=== PATIENT | female | born 1955 | race Two or more races ===

== ENCOUNTER 2016-12-07 14:47 | Inpatient (IN) | payer MEDICAID ==
[~2016-12-07] VITALS: Ht 152.4 cm; Wt 87.0 kg
[~2016-12-07 14:47] MED LIST: GEMFPOW3 XX; HYDRPOW88 XX; LISI-646 PO; OMEP20CA5 PO; PROZAC PO; SIMV10TA84 PO
[2016-12-07] MEDS ORDERED: HYDROmorphone HCL 2 MG/ML VL IV ONE (16:15)
[2016-12-07] MEDS ORDERED: KETOROLAC TROMETH 30 MG/ML 1ML VIAL IV ONE (16:15)
[2016-12-07 17:30] LABS: Basophils # (auto) 0.1 uL; Basophils % (auto) 0.6 % (0.0-2.0); Eosinophils # (auto) 0.4 uL; Eosinophils % (auto) 3.4 % (0.0-7.0); Hematocrit 38.2 % (36.0-46.0); Hemoglobin 12.8 g/dL (12.2-16.2); Lymphocytes % (auto) 26.3 % (10.0-50.0); Mean Corpuscular Hemoglobin 27.2 pg (28.0-32.0); Mean Corpuscular Hgb Conc. 33.6 g/dL (32.0-36.0); Mean Corpuscular Volume 80.9 fL (80.0-100.0); Mean Platelet Volume 7.5 fL (7.4-10.4); Monocytes # (auto) 0.8 uL; Monocytes % (auto) 6.7 % (0.0-12.0); Neutrophils # (auto) 7.1 uL; Platelet Count (auto) 355 10^3/uL (140-450); Red Cell Distribution Width 16.2 % (11.6-16.0); White Blood Cell 11.2 10^3/uL (4.4-10.8)
[2016-12-07 17:45] LABS: BUN/Creatinine Ratio 11.5; Bilirubin, Total 0.3 mg/dL (0.2-1.0); Calcium 8.5 mg/dL (8.5-10.1); Potassium 4.6 mmol/L (3.5-5.1); Total Protein 8.1 g/dL (6.4-8.2)
[2016-12-07] MEDS ORDERED: CLINDAMYCIN 900MG IV 50 ML IV ONE (18:15)
[2016-12-07] MEDS ORDERED: ACETAMINOPHEN 325 MG TAB PO PRN (19:15)
[2016-12-07] MEDS ORDERED: DOCUSATE SOD 100 MG CAP PO PRN (19:15)
[2016-12-07] MEDS ORDERED: ONDANSETRON HCL 4 MG/2 ML VIAL IV PRN (19:15)
[2016-12-07] MEDS ORDERED: ALBUTEROL SULF 2.5 MG/0.5ML(0.5%) NEB SOLN NEB PRN (19:15)
[2016-12-07] MEDS ORDERED: IPRATROPIUM BROM 0.5 MG/2.5ML INH SOL NEB PRN (19:15)
[2016-12-07] MEDS ORDERED: TEMAZEPAM 15 MG CAP PO PRN (19:15)
[2016-12-07] MEDS ORDERED: VANCOMYCIN PER PHARMACY 0 MG IV SCH (19:15)
[2016-12-07] MEDS ORDERED: SOD CHL 0.45% 1,000 ML IV ONE (19:15)
[2016-12-07 19:55] VITALS: BP 166/87
[2016-12-07] MEDS: VANCOMYCIN 1GM/250ML D5W 250 ML IV SCH (20:50)
[2016-12-07 21:50] VITALS: BP 166/87
[2016-12-07 22:00] VITALS: BP 166/87
[2016-12-07] MEDS: PIPERACILLIN-TAZOB 3.375GM 100 ML IV SCH (22:00)
[2016-12-07 22:30] VITALS: BP 133/70
[2016-12-07] MEDS: LISINOPRIL 20 MG TAB PO SCH (22:48)
[2016-12-07] MEDS: ATORVASTATIN 20 MG TAB PO SCH (22:48)
[2016-12-08 00:33] LABS: Urine RBC None Seen /hpf (0 - 4)
[2016-12-08 00:45] LABS: Urine Bilirubin Negative (Negative); Urine Blood Negative /uL (Negative); Urine Color Yellow (Yellow); Urine Glucose Normal (Normal); Urine Ketone Negative (Negative); Urine Mucus FEW (None Seen); Urine Nitrite Negative (Negative); Urine Urobilinogen Normal (Negative)
[2016-12-08 05:09] VITALS: BP 134/88
[2016-12-08] MEDS: PIPERACILLIN-TAZOB 3.375GM 100 ML IV SCH ×3 (05:46→22:12)
[2016-12-08] MEDS: KETOROLAC TROMETH 30 MG/ML 1ML VIAL IV PRN ×2 (06:00→12:47)
[2016-12-08 07:23] LABS: Basophils # (auto) 0 uL; Basophils % (auto) 0.5 % (0.0-2.0); DEFINITIVE VIEW TRANSMISSION; Eosinophils # (auto) 0.4 uL; Eosinophils % (auto) 4.8 % (0.0-7.0); Hematocrit 39.4 % (36.0-46.0); Lymphocytes # (auto) 2.8 uL; Lymphocytes % (auto) 30.5 % (10.0-50.0); Mean Corpuscular Hemoglobin 26.6 pg (28.0-32.0); Mean Corpuscular Volume 80.5 fL (80.0-100.0); Mean Platelet Volume 7.3 fL (7.4-10.4); Monocytes # (auto) 0.6 uL; Monocytes % (auto) 6.7 % (0.0-12.0); Neutrophils # (auto) 5.2 uL; Neutrophils % (auto) 57.5 % (37.0-80.0); Platelet Count (auto) 400 10^3/uL (140-450); Red Cell Distribution Width 16.3 % (11.6-16.0); White Blood Cell 9.1 10^3/uL (4.4-10.8)
[2016-12-08 07:51] LABS: Albumin 2.9 g/dL (3.4-5.0); BUN/Creatinine Ratio 10.7; Bilirubin, Total 0.3 mg/dL (0.2-1.0); Calcium 8.7 mg/dL (8.5-10.1); Magnesium 2.2 mg/dL (1.6-2.6); Potassium 4.1 mmol/L (3.5-5.1)
[2016-12-08 08:00] VITALS: BP 142/86
[2016-12-08 09:00] VITALS: BP 142/86
[2016-12-08] MEDS ORDERED: IOHEXOL 350 MG/ML 100ML IJ ONE (09:12)
[2016-12-08] MEDS ORDERED: ENOXAPARIN SOD 40 MG/0.4 ML SYRINGE SC ONE (11:00)
[2016-12-08] MEDS: FLUoxetine HCL 20 MG CAP PO SCH (11:34)
[2016-12-08] MEDS: VANCOMYCIN 1GM/250ML D5W 250 ML IV SCH ×2 (11:34→19:51)
[2016-12-08] MEDS: NICOTINE 21MG/24 HR TOPICAL PATCH TD SCH (11:34)
[2016-12-08] MEDS: LISINOPRIL 20 MG TAB PO SCH ×2 (11:35→22:13)
[2016-12-08 13:00] VITALS: BP 118/74
[2016-12-08 17:01] VITALS: BP 164/84
[2016-12-08 22:00] VITALS: BP 136/89
[2016-12-08] MEDS: ATORVASTATIN 20 MG TAB PO SCH (22:12)
[2016-12-09 05:41] VITALS: BP 150/81
[2016-12-09] MEDS: PIPERACILLIN-TAZOB 3.375GM 100 ML IV SCH ×3 (05:44→22:15)
[2016-12-09 05:51] LABS: Basophils # (auto) 0 uL; Basophils % (auto) 0.3 % (0.0-2.0); DEFINITIVE VIEW TRANSMISSION; Eosinophils # (auto) 0.4 uL; Eosinophils % (auto) 4.1 % (0.0-7.0); Hematocrit 42.3 % (36.0-46.0); Hemoglobin 13.8 g/dL (12.2-16.2); Lymphocytes # (auto) 2.4 uL; Lymphocytes % (auto) 26.5 % (10.0-50.0); Mean Corpuscular Hemoglobin 26.4 pg (28.0-32.0); Mean Corpuscular Hgb Conc. 32.5 g/dL (32.0-36.0); Mean Corpuscular Volume 81.2 fL (80.0-100.0); Mean Platelet Volume 7.2 fL (7.4-10.4); Monocytes # (auto) 0.7 uL; Monocytes % (auto) 8.1 % (0.0-12.0); Neutrophils # (auto) 5.6 uL; Platelet Count (auto) 392 10^3/uL (140-450); Red Cell Distribution Width 16.2 % (11.6-16.0); White Blood Cell 9.3 10^3/uL (4.4-10.8)
[2016-12-09 06:10] LABS: Albumin 2.8 g/dL (3.4-5.0); BUN/Creatinine Ratio 14.6; Calcium 8.1 mg/dL (8.5-10.1); Potassium 4.1 mmol/L (3.5-5.1)
[2016-12-09 06:16] LABS: Bilirubin, Total 0.6 mg/dL (0.2-1.0); Total Protein 7.9 g/dL (6.4-8.2)
[2016-12-09] MEDS: VANCOMYCIN 1GM/250ML D5W 250 ML IV SCH (08:00)
[2016-12-09 09:00] VITALS: BP 136/64
[2016-12-09] MEDS: ENOXAPARIN SOD 40 MG/0.4 ML SYRINGE SC SCH (09:09)
[2016-12-09] MEDS: LISINOPRIL 20 MG TAB PO SCH ×2 (09:10→20:55)
[2016-12-09] MEDS: FLUoxetine HCL 20 MG CAP PO SCH (09:10)
[2016-12-09] MEDS: NICOTINE 21MG/24 HR TOPICAL PATCH TD SCH (09:11)
[2016-12-09] MEDS: KETOROLAC TROMETH 30 MG/ML 1ML VIAL IV PRN ×2 (10:48→20:55)
[2016-12-09 13:00] VITALS: BP 147/78
[2016-12-09 17:32] VITALS: BP 135/72
[2016-12-09] MEDS ORDERED: METH10T PO (20:53)
[2016-12-09] MEDS: ATORVASTATIN 20 MG TAB PO SCH (20:54)
[2016-12-09] MEDS ORDERED: METHADONE HCL 10 MG TAB PO ONE (22:15)
[2016-12-09 22:24] VITALS: BP 142/85
[2016-12-10 04:47] VITALS: BP 136/93
[2016-12-10] MEDS: PIPERACILLIN-TAZOB 3.375GM 100 ML IV SCH (06:11)
[2016-12-10 07:59] VITALS: BP 150/80
[2016-12-10] MEDS: ENOXAPARIN SOD 40 MG/0.4 ML SYRINGE SC SCH (09:25)
[2016-12-10] MEDS: FLUoxetine HCL 20 MG CAP PO SCH (09:26)
[2016-12-10] MEDS: NICOTINE 21MG/24 HR TOPICAL PATCH TD SCH (09:26)
[2016-12-10] MEDS: LISINOPRIL 20 MG TAB PO SCH (09:27)
[2016-12-10] MEDS ORDERED: VANCOMYCIN 750 MG in D5W 5% 250 ML IV SCH (11:00)
[2016-12-10 11:25] VITALS: BP 138/95
[2016-12-10 11:29] VITALS: BP 151/80
[2016-12-10 11:55] VITALS: BP 151/80
== END 2016-12-10 12:15 | disposition home or self-care (01) | DRG 383 ==
LOC: ER 14:52 → OVERFLOW 14:53 → EAST 21:58
PROVIDERS: ADMIT Internal Medicine; ATTEND Internal Medicine
DX: L03.115 Cellulitis of right lower limb (principal); E44.0 Moderate protein-calorie malnutrition; I10 Essential (primary) hypertension; E03.9 Hypothyroidism, unspecified; E05.90 Thyrotoxicosis, unspecified without thyrotoxic crisis or storm; E78.5 Hyperlipidemia, unspecified; F17.210 Nicotine dependence, cigarettes, uncomplicated; F32.9 Major depressive disorder, single episode, unspecified; G89.29 Other chronic pain; M19.90 Unspecified osteoarthritis, unspecified site; J44.9 Chronic obstructive pulmonary disease, unspecified; K21.9 Gastro-esophageal reflux disease without esophagitis; Z83.3 Family history of diabetes mellitus; Z86.61 Personal history of infections of the central nervous system; Z86.73 Personal history of transient ischemic attack (TIA), and cerebral infarction without residual deficits; Z88.5 Allergy status to narcotic agent; Z82.49 Family history of ischemic heart disease and other diseases of the circulatory system; Z80.9 Family history of malignant neoplasm, unspecified; Z98.890 Other specified postprocedural states; Z90.710 Acquired absence of both cervix and uterus; Z86.19 Personal history of other infectious and parasitic diseases; Z68.37 Body mass index [BMI] 37.0-37.9, adult
CPT/HCPCS: 36415; 71010; 78582; 80053; 80061; 80202; 81001; 83735; 84100; 84443; 85025; 85379; 85652; 93971; 94761; 96365; 96366; 96375; J1885; J2405; J2543; J3490; J7060

== ENCOUNTER 2017-01-26 19:29 | Emergency (ER) | payer MEDICAID ==
[~2017-01-26] VITALS: Ht 157.5 cm; Wt 83.5 kg
[~2017-01-26 19:29] MED LIST changes: +METH10T PO
[2017-01-26] MEDS ORDERED: ALBUTEROL SULF 2.5 MG/0.5ML(0.5%) NEB SOLN HHN STA (19:53)
[2017-01-26 19:55] VITALS: BP 152/100
[2017-01-26] MEDS ORDERED: IPRATROPIUM BROM 0.5 MG/2.5ML INH SOL NEB ONE (20:00)
[2017-01-26 20:32] LABS: Urine Bilirubin Negative (Negative); Urine Blood Negative /uL (Negative); Urine Color Yellow (Yellow); Urine Glucose Normal (Normal); Urine Ketone Negative (Negative); Urine Mucus FEW (None Seen); Urine Nitrite Negative (Negative); Urine RBC 2 /hpf (0 - 4); Urine Squamous Epithelial Cell FEW /hpf (<5)
[2017-01-26 20:38] LABS: Basophils # (auto) 0 uL; Basophils % (auto) 0.2 % (0.0-2.0); DEFINITIVE VIEW TRANSMISSION; Eosinophils # (auto) 0.5 uL; Eosinophils % (auto) 5.3 % (0.0-7.0); Hematocrit 36.1 % (36.0-46.0); Hemoglobin 11.6 g/dL (12.2-16.2); Lymphocytes # (auto) 2.8 uL; Lymphocytes % (auto) 27.9 % (10.0-50.0); Mean Corpuscular Hemoglobin 26.3 pg (28.0-32.0); Mean Corpuscular Hgb Conc. 32.3 g/dL (32.0-36.0); Mean Corpuscular Volume 81.6 fL (80.0-100.0); Mean Platelet Volume 7.6 fL (7.4-10.4); Monocytes # (auto) 0.9 uL; Monocytes % (auto) 8.8 % (0.0-12.0); Neutrophils # (auto) 5.9 uL; Neutrophils % (auto) 57.8 % (37.0-80.0); Platelet Count (auto) 343 10^3/uL (140-450); Red Cell Distribution Width 16.2 % (11.6-16.0); White Blood Cell 10.2 10^3/uL (4.4-10.8)
[2017-01-26 20:41] LABS: Albumin 3.4 g/dL (3.4-5.0); Anion Gap 9 (5-15); Aspartate Aminotransferase 55 U/L (15-37); BUN/Creatinine Ratio 13.3; Blood Urea Nitrogen 14 mg/dL (7-18); Calcium 8.4 mg/dL (8.5-10.1); Carbon Dioxide 26 mmol/L (21-32); Chloride 103 mmol/L (98-107); GFR African American 68 mL/min; GFR Non-African American 56 mL/min; Glucose 113 mg/dL (74-106); Magnesium 2.1 mg/dL (1.6-2.6); Potassium 3.5 mmol/L (3.5-5.1); Sodium 138 mmol/L (136-145)
[2017-01-26 20:46] LABS: Alkaline Phosphatase 124 U/L (45-117); Bilirubin, Total 0.5 mg/dL (0.2-1.0); Total Protein 8.4 g/dL (6.4-8.2)
[2017-01-26 21:06] LABS: B-Type Natriuretic Peptide 42.22 pg/mL (0-100)
[2017-01-26 21:08] LABS: INR 0.99 (0.9-1.15); Partial Thromboplastin Time 27.5 sec (22.64-33.71); Prothrombin Time 10.7 sec (9.37-12.3)
[2017-01-26 21:18] LABS: Temperature: 23.4 C (20.0-25.0)
== END 2017-01-27 00:02 | disposition left against medical advice (07) ==
LOC: ER 19:33
DX: R06.02 Shortness of breath (principal); Z53.21 Procedure and treatment not carried out due to patient leaving prior to being seen by health care provider
CPT/HCPCS: 36415; 71010; 80053; 81001; 83735; 83880; 84484; 85025; 85610; 85730; 93005; 94640

== ENCOUNTER 2018-06-24 00:25 | Inpatient (IN) | payer MEDICAID ==
[2018-06-23 22:00] VITALS: BP 98/60
[~2018-06-24] VITALS: Ht 157.5 cm; Wt 70.6 kg
[~2018-06-24 00:25] MED LIST changes: +FLUO-125 PO; +GABA300C10 PO; -GEMFPOW3 XX; -HYDRPOW88 XX; -OMEP20CA5 PO; -PROZAC PO; -SIMV10TA84 PO
[2018-06-24 04:54] LABS: Basophils # (auto) 0 uL; Basophils % (auto) 0.5 % (0.0-2.0); Eosinophils # (auto) 0.3 uL; Eosinophils % (auto) 3.2 % (0.0-7.0); Hematocrit 42.2 % (36.0-46.0); Lymphocytes # (auto) 3.1 uL; Lymphocytes % (auto) 29.7 % (10.0-50.0); Mean Corpuscular Hemoglobin 28.5 pg (28.0-32.0); Mean Corpuscular Hgb Conc. 33.2 g/dL (32.0-36.0); Mean Corpuscular Volume 85.8 fL (80.0-100.0); Monocytes # (auto) 0.9 uL; Monocytes % (auto) 8.5 % (0.0-12.0); Neutrophils # (auto) 6.1 uL; Neutrophils % (auto) 58.1 % (37.0-80.0); Platelet Count (auto) 311 10^3/uL (140-450); Red Blood Cells 4.92 10^6/uL (4.0-5.20); Red Cell Distribution Width 15.4 % (11.8-14.3); White Blood Cell 10.5 10^3/uL (4.4-10.8)
[2018-06-24 05:01] LABS: Urine Bacteria NONE SEEN /hpf (None Seen); Urine Blood Negative /uL (Negative); Urine Mucus FEW (None Seen); Urine Specific Gravity 1.018 (1.001-1.035); Urine WBC 1 /hpf (0 - 5)
[2018-06-24 05:02] LABS: INR 0.94 (0.9-1.15); Prothrombin Time 10.1 sec (9.27-12.13)
[2018-06-24 05:08] LABS: Alanine Aminotransferase 19 U/L (13-56); Albumin 3.4 g/dL (3.4-5.0); Anion Gap 11 (5-15); Aspartate Aminotransferase 25 U/L (15-37); BUN/Creatinine Ratio 12.9; Blood Alcohol < 3.0 mg/dL (0-5); Blood Urea Nitrogen 15 mg/dL (7-18); Calcium 9.2 mg/dL (8.5-10.1); Carbon Dioxide 23 mmol/L (21-32); Chloride 105 mmol/L (98-107); GFR African American 60 mL/min; GFR Non-African American 50 mL/min; Glucose 87 mg/dL (74-106); Lipase 97 U/L (73-393); Potassium 3.3 mmol/L (3.5-5.1); Sodium 139 mmol/L (136-145)
[2018-06-24 05:14] LABS: Alkaline Phosphatase 107 U/L (45-117); Bilirubin, Total 0.4 mg/dL (0.2-1.0); Total Protein 7.9 g/dL (6.4-8.2)
[2018-06-24 05:22] LABS: Alcohol, Urine < 3.0 mg/dL (0-5); Amphetamine Screen, Urine NEGATIVE (NEGATIVE); Barbiturate Scree,Urine NEGATIVE (NEGATIVE); Benzodiazephine Screen, Urine POSITIVE (NEGATIVE); Cannabinoid Screen, Urine POSITIVE (NEGATIVE); Cocaine Screen, Urine POSITIVE (NEGATIVE); Opiate Scree,Urine NEGATIVE (NEGATIVE); Phencyclidine Screen, Urine NEGATIVE (NEGATIVE)
[2018-06-24 06:10] LABS: CRP High Sensitivity 0.95 mg/dL (< 0.3)
[2018-06-24] MEDS ORDERED: METF-370 PO (08:47)
[2018-06-24] MEDS ORDERED: CHOL20007 PO (08:47)
[2018-06-24] MEDS ORDERED: IBUP600T27 PO (08:47)
[2018-06-24] MEDS ORDERED: VENL75TA PO (08:47)
[2018-06-24] MEDS ORDERED: DICL1GEL26 TD (08:47)
[2018-06-24] MEDS ORDERED: PRAV20TA3 PO (08:47)
[2018-06-24] MEDS ORDERED: TERB250T66 PO (08:47)
[2018-06-24] MEDS ORDERED: LISI30TA36 PO (08:47)
[2018-06-24] MEDS ORDERED: POTASSIUM EFFERVESENT TAB 25 MEQ PO ONE (10:00)
[2018-06-24] MEDS ORDERED: DEXTROSE (50%) 50ML SYRG IV PRN (10:15)
[2018-06-24] MEDS ORDERED: TEMAZEPAM 15 MG CAP PO PRN (10:15)
[2018-06-24] MEDS ORDERED: VENLAFAXINE HCL 37.5MG TABLET PO ONE (10:15)
[2018-06-24] MEDS ORDERED: ACETAMINOPHEN 325 MG TAB PO PRN (10:15)
[2018-06-24] MEDS ORDERED: LISINOPRIL 20 MG TAB PO ONE (10:15)
[2018-06-24] MEDS ORDERED: KETOROLAC TROMETH 30 MG/ML 1ML VIAL IV PRN (10:15)
[2018-06-24] MEDS ORDERED: DOCUSATE SOD 100 MG CAP PO PRN (10:15)
[2018-06-24] MEDS ORDERED: ONDANSETRON HCL 4 MG/2 ML VIAL IV PRN (10:15)
[2018-06-24] MEDS ORDERED: IBUPROFEN 800 MG TAB PO PRN (10:15)
[2018-06-24] MEDS ORDERED: NITROGLYCERIN 0.4 MG SL TAB SL PRN (10:15)
[2018-06-24] MEDS ORDERED: traMADol HCL 50 MG TAB PO PRN (10:15)
[2018-06-24] MEDS ORDERED: METHADONE HCL 10 MG TAB PO ONE (10:15)
[2018-06-24] MEDS: FLUoxetine HCL 20 MG CAP PO SCH (10:30)
[2018-06-24] MEDS ORDERED: IPRATROPIUM BROM 0.5 MG/2.5ML INH SOL ONE (11:25)
[2018-06-24] MEDS ORDERED: ALBUTEROL SULF 2.5 MG/0.5ML(0.5%) NEB SOLN ONE (11:25)
[2018-06-24] MEDS: ALBUTEROL SULF 2.5 MG/0.5ML(0.5%) NEB SOLN NEB SCH ×2 (12:09→18:26)
[2018-06-24] MEDS: IPRATROPIUM BROM 0.5 MG/2.5ML INH SOL NEB SCH ×2 (12:09→18:26)
[2018-06-24] MEDS: ACCU-CHEK COMFORT CURVE STRIP VI SCH ×3 (12:29→22:00)
[2018-06-24] MEDS: InsuLIN REG 1unit/0.01ml Soln (100units/ml) SC SCH ×3 (12:29→22:00)
[2018-06-24] MEDS: SODIUM CHLOR 0.9% PF (SALINE LOCK) 10ML VIAL/SYR IV SCH ×2 (14:08→23:19)
[2018-06-24] MEDS: GABAPENTIN 300 MG CAP PO SCH ×2 (14:11→23:20)
[2018-06-24 15:00] VITALS: BP 93/61
[2018-06-24 15:47] VITALS: BP 93/61
[2018-06-24] MEDS ORDERED: LORazepam 2MG/ML-1ML VIAL IV PRN (18:30)
[2018-06-24 19:08] LABS: Folate (Folic Acid) 16.66 ng/mL (5.38-24)
[2018-06-24] MEDS: VENLAFAXINE HCL 37.5MG TABLET PO SCH (23:19)
[2018-06-24] MEDS: PRAVASTATIN SODIUM 20 MG TAB PO SCH (23:20)
[2018-06-25] MEDS: ALBUTEROL SULF 2.5 MG/0.5ML(0.5%) NEB SOLN NEB SCH ×4 (00:11→18:31)
[2018-06-25] MEDS: IPRATROPIUM BROM 0.5 MG/2.5ML INH SOL NEB SCH ×4 (00:11→18:33)
[2018-06-25 05:36] VITALS: BP 109/62
[2018-06-25 06:20] LABS: Basophils # (auto) 0 uL; Basophils % (auto) 0.5 % (0.0-2.0); Eosinophils # (auto) 0.2 uL; Eosinophils % (auto) 2.7 % (0.0-7.0); Hematocrit 36.5 % (36.0-46.0); Hemoglobin 12.2 g/dL (12.2-16.2); Lymphocytes # (auto) 2.8 uL; Lymphocytes % (auto) 32.6 % (10.0-50.0); Mean Corpuscular Hemoglobin 28.7 pg (28.0-32.0); Mean Corpuscular Hgb Conc. 33.4 g/dL (32.0-36.0); Monocytes # (auto) 0.8 uL; Monocytes % (auto) 8.7 % (0.0-12.0); Neutrophils # (auto) 4.8 uL; Neutrophils % (auto) 55.5 % (37.0-80.0); Nucleated Red Blood Cells % 0.1 %; Platelet Count (auto) 282 10^3/uL (140-450); Red Blood Cells 4.24 10^6/uL (4.0-5.20); Red Cell Distribution Width 14.9 % (11.8-14.3); White Blood Cell 8.7 10^3/uL (4.4-10.8)
[2018-06-25] MEDS: InsuLIN REG 1unit/0.01ml Soln (100units/ml) SC SCH ×4 (06:31→22:00)
[2018-06-25] MEDS: ACCU-CHEK COMFORT CURVE STRIP VI SCH ×4 (06:31→22:24)
[2018-06-25] MEDS: GABAPENTIN 300 MG CAP PO SCH ×3 (06:31→22:23)
[2018-06-25] MEDS: SODIUM CHLOR 0.9% PF (SALINE LOCK) 10ML VIAL/SYR IV SCH ×3 (06:31→22:23)
[2018-06-25 06:43] LABS: Albumin 3.1 g/dL (3.4-5.0); BUN/Creatinine Ratio 12.9; Bilirubin, Total 0.3 mg/dL (0.2-1.0); Calcium 8.9 mg/dL (8.5-10.1); Potassium 3.5 mmol/L (3.5-5.1); Total Protein 7.1 g/dL (6.4-8.2)
[2018-06-25 08:47] VITALS: BP 110/59
[2018-06-25] MEDS: ENOXAPARIN SOD 30 MG/0.3 ML SYRINGE SC SCH (09:58)
[2018-06-25] MEDS: FAMOTIDINE 20 MG TAB PO SCH (09:58)
[2018-06-25] MEDS: METHADONE HCL 10 MG TAB PO SCH (10:00)
[2018-06-25] MEDS: MULTIPLE VITAMIN TAB PO SCH (10:02)
[2018-06-25] MEDS: FLUoxetine HCL 20 MG CAP PO SCH (10:03)
[2018-06-25] MEDS: LISINOPRIL 20 MG TAB PO SCH (10:05)
[2018-06-25] MEDS: VENLAFAXINE HCL 37.5MG TABLET PO SCH ×2 (12:38→22:23)
[2018-06-25 13:00] VITALS: BP 94/58
[2018-06-25 17:00] VITALS: BP 90/56
[2018-06-25 22:09] VITALS: BP 95/63
[2018-06-25] MEDS: PRAVASTATIN SODIUM 20 MG TAB PO SCH (22:24)
[2018-06-26] MEDS: IPRATROPIUM BROM 0.5 MG/2.5ML INH SOL NEB SCH ×4 (01:01→18:44)
[2018-06-26] MEDS: ALBUTEROL SULF 2.5 MG/0.5ML(0.5%) NEB SOLN NEB SCH ×4 (01:01→18:44)
[2018-06-26 05:49] VITALS: BP 89/54
[2018-06-26] MEDS: GABAPENTIN 300 MG CAP PO SCH ×3 (06:26→22:15)
[2018-06-26] MEDS: SODIUM CHLOR 0.9% PF (SALINE LOCK) 10ML VIAL/SYR IV SCH ×3 (06:26→22:15)
[2018-06-26] MEDS: ACCU-CHEK COMFORT CURVE STRIP VI SCH ×4 (06:26→22:16)
[2018-06-26] MEDS: InsuLIN REG 1unit/0.01ml Soln (100units/ml) SC SCH ×4 (06:26→22:24)
[2018-06-26 06:30] LABS: BUN/Creatinine Ratio 10.1; Calcium 8.6 mg/dL (8.5-10.1)
[2018-06-26 08:00] VITALS: BP 96/53
[2018-06-26] MEDS: SODIUM CHLORIDE 0.9% 1,000 ML IV SCH ×2 (10:00→22:15)
[2018-06-26] MEDS ORDERED: ERGOCALCIFEROL 50,000 UNIT(1.25MG) CAP PO SCH (10:00)
[2018-06-26] MEDS: LISINOPRIL 20 MG TAB PO SCH (10:00)
[2018-06-26] MEDS: MULTIPLE VITAMIN TAB PO SCH (10:06)
[2018-06-26] MEDS: FLUoxetine HCL 20 MG CAP PO SCH (10:06)
[2018-06-26] MEDS: FAMOTIDINE 20 MG TAB PO SCH (10:08)
[2018-06-26] MEDS: ENOXAPARIN SOD 30 MG/0.3 ML SYRINGE SC SCH (10:09)
[2018-06-26] MEDS: METHADONE HCL 10 MG TAB PO SCH (10:14)
[2018-06-26] MEDS: VENLAFAXINE HCL 37.5MG TABLET PO SCH ×2 (10:41→22:15)
[2018-06-26 12:09] VITALS: BP 131/77
[2018-06-26 16:53] VITALS: BP 101/57
[2018-06-26 22:00] VITALS: BP 108/54
[2018-06-26] MEDS: PRAVASTATIN SODIUM 20 MG TAB PO SCH (22:16)
[2018-06-27] MEDS: ALBUTEROL SULF 2.5 MG/0.5ML(0.5%) NEB SOLN NEB SCH ×2 (00:34→07:29)
[2018-06-27] MEDS: IPRATROPIUM BROM 0.5 MG/2.5ML INH SOL NEB SCH ×2 (00:34→07:29)
[2018-06-27 04:53] VITALS: BP 137/87
[2018-06-27] MEDS: SODIUM CHLORIDE 0.9% 1,000 ML IV SCH (06:06)
[2018-06-27] MEDS: SODIUM CHLOR 0.9% PF (SALINE LOCK) 10ML VIAL/SYR IV SCH (06:06)
[2018-06-27] MEDS: GABAPENTIN 300 MG CAP PO SCH (06:06)
[2018-06-27] MEDS: InsuLIN REG 1unit/0.01ml Soln (100units/ml) SC SCH ×2 (06:06→11:30)
[2018-06-27] MEDS: ACCU-CHEK COMFORT CURVE STRIP VI SCH ×2 (06:07→11:30)
[2018-06-27 06:47] LABS: BUN/Creatinine Ratio 18.3; Calcium 8.3 mg/dL (8.5-10.1); Potassium 4.2 mmol/L (3.5-5.1)
[2018-06-27 09:00] VITALS: BP 111/73
[2018-06-27] MEDS: FAMOTIDINE 20 MG TAB PO SCH (09:57)
[2018-06-27] MEDS: VENLAFAXINE HCL 37.5MG TABLET PO SCH (09:57)
[2018-06-27] MEDS: LISINOPRIL 20 MG TAB PO SCH (09:58)
[2018-06-27] MEDS: FLUoxetine HCL 20 MG CAP PO SCH (09:59)
[2018-06-27] MEDS: METHADONE HCL 10 MG TAB PO SCH (09:59)
[2018-06-27] MEDS: ENOXAPARIN SOD 30 MG/0.3 ML SYRINGE SC SCH (09:59)
[2018-06-27] MEDS: MULTIPLE VITAMIN TAB PO SCH (09:59)
== END 2018-06-27 14:00 | disposition home or self-care (01) | DRG 347 ==
LOC: ER 00:29 → OVERFLOW 00:30 → EAST 15:08 → TELE-EAST 19:58 → EAST 20:00
PROVIDERS: ADMIT Internal Medicine; ATTEND Internal Medicine
DX: M48.54XA Collapsed vertebra, not elsewhere classified, thoracic region, initial encounter for fracture (principal); G92 Toxic encephalopathy; J96.11 Chronic respiratory failure with hypoxia; E72.4 Disorders of ornithine metabolism; N17.9 Acute kidney failure, unspecified; E11.21 Type 2 diabetes mellitus with diabetic nephropathy; N18.3 Chronic kidney disease, stage 3 (moderate); Z99.81 Dependence on supplemental oxygen; E87.6 Hypokalemia; R29.6 Repeated falls; Z86.73 Personal history of transient ischemic attack (TIA), and cerebral infarction without residual deficits; F32.9 Major depressive disorder, single episode, unspecified; K21.9 Gastro-esophageal reflux disease without esophagitis; E78.5 Hyperlipidemia, unspecified; I12.9 Hypertensive chronic kidney disease with stage 1 through stage 4 chronic kidney disease, or unspecified chronic kidney disease; G47.50 Parasomnia, unspecified; E11.22 Type 2 diabetes mellitus with diabetic chronic kidney disease; E44.1 Mild protein-calorie malnutrition; E86.0 Dehydration; F11.10 Opioid abuse, uncomplicated; M19.90 Unspecified osteoarthritis, unspecified site; T40.3X5A Adverse effect of methadone, initial encounter; F17.210 Nicotine dependence, cigarettes, uncomplicated; G89.29 Other chronic pain; G93.89 Other specified disorders of brain; J43.9 Emphysema, unspecified; Z82.49 Family history of ischemic heart disease and other diseases of the circulatory system; Z83.3 Family history of diabetes mellitus; Z90.710 Acquired absence of both cervix and uterus; Z91.81 History of falling; Y92.89 Other specified places as the place of occurrence of the external cause; Z88.5 Allergy status to narcotic agent; Z88.8 Allergy status to other drugs, medicaments and biological substances; Z68.28 Body mass index [BMI] 28.0-28.9, adult
CPT/HCPCS: 36415; 36600; 51702; 70450; 70551; 71046; 72070; 80048; 80053; 80307; 80320; 80329; 81001; 82010; 82140; 82607; 82746; 82805; 82962; 83036; 83605; 83690; 84443; 84484; 85025; 85610; 85652; 86141; 87040; 93005; 94640; 95819; 97110; 97530; A6257; J1815; J1885

== ENCOUNTER 2018-08-16 12:52 | Emergency (ER) | payer MEDICAID ==
[~2018-08-16] VITALS: Ht 154.9 cm; Wt 52.2 kg
[~2018-08-16 12:52] MED LIST changes: +CHOL20007 PO; +DICL1GEL26 TD; +IBUP600T27 PO; +LISI30TA36 PO; +METF-370 PO; +PRAV20TA3 PO; +TERB250T66 PO; +VENL75TA PO
[2018-08-16 13:18] VITALS: BP 171/75
[2018-08-16] MEDS ORDERED: HYDROcodone-ACET 5/325MG TAB PO ONE (14:00)
== END 2018-08-16 14:18 | disposition home or self-care (01) ==
LOC: ER 12:52
DX: M16.12 Unilateral primary osteoarthritis, left hip (principal); J44.9 Chronic obstructive pulmonary disease, unspecified; E11.9 Type 2 diabetes mellitus without complications; K21.9 Gastro-esophageal reflux disease without esophagitis; E78.5 Hyperlipidemia, unspecified; I10 Essential (primary) hypertension; F17.210 Nicotine dependence, cigarettes, uncomplicated; Z90.710 Acquired absence of both cervix and uterus; Z86.73 Personal history of transient ischemic attack (TIA), and cerebral infarction without residual deficits; Z88.6 Allergy status to analgesic agent
CPT/HCPCS: 73502

== ENCOUNTER 2019-06-30 19:30 | Emergency (ER) | payer MEDICARE, MEDICAID ==
[~2019-06-30] VITALS: Ht 157.5 cm; Wt 54.4 kg
[2019-06-30 19:40] VITALS: BP 156/93
[2019-06-30 21:44] LABS: Urine Bacteria NONE SEEN /hpf (None Seen); Urine Blood Negative /uL (Negative); Urine Hyaline Cast FEW /lpf (0 - 2); Urine Mucus FEW (None Seen); Urine Specific Gravity 1.023 (1.001-1.035); Urine WBC 13 /hpf (0 - 5)
== END 2019-07-01 00:16 | disposition left against medical advice (07) ==
LOC: ER 19:34
DX: M54.9 Dorsalgia, unspecified (principal); G89.29 Other chronic pain; Z53.21 Procedure and treatment not carried out due to patient leaving prior to being seen by health care provider
CPT/HCPCS: 74176; 81001

== ENCOUNTER 2019-07-01 13:04 | Emergency (ER) | payer MEDICARE, MEDICAID ==
[~2019-07-01] VITALS: Ht 157.5 cm; Wt 77.1 kg
[2019-07-01 14:29] LABS: Basophils # (auto) 0.1 uL; Basophils % (auto) 1.2 % (0.0-2.0); Eosinophils # (auto) 0.3 uL; Eosinophils % (auto) 3.9 % (0.0-7.0); Hematocrit 42.4 % (36.0-46.0); Hemoglobin 14.4 g/dL (12.2-16.2); Lymphocytes % (auto) 38.1 % (10.0-50.0); Mean Corpuscular Hemoglobin 28.9 pg (28.0-32.0); Monocytes # (auto) 0.6 uL; Neutrophils % (auto) 49.8 % (37.0-80.0); Platelet Count (auto) 287 10^3/uL (140-450); Red Blood Cells 4.99 10^6/uL (4.0-5.20); White Blood Cell 7.9 10^3/uL (4.4-10.8)
[2019-07-01 14:42] LABS: INR 0.95 (0.9-1.15); Partial Thromboplastin Time 26.2 sec (23.64-32.05)
[2019-07-01 14:45] LABS: Albumin 3.8 g/dL (3.4-5.0); BUN/Creatinine Ratio 12.8; Calcium 8.8 mg/dL (8.5-10.1); Magnesium 2.1 mg/dL (1.6-2.6); Potassium 3.5 mmol/L (3.5-5.1)
[2019-07-01 14:56] LABS: Bilirubin, Total 0.3 mg/dL (0.2-1.0); Total Protein 7.9 g/dL (6.4-8.2)
[2019-07-01] MEDS ORDERED: LIDOCAINE 1% HCL (LOCAL ANESTH.) INJ 20ML MDV ONE (16:42)
[2019-07-01] MEDS ORDERED: KETOROLAC TROMETH 60MG/2ML VIAL IM ONE (16:45)
[2019-07-01 18:10] VITALS: BP 138/92
== END 2019-07-01 19:50 | disposition home or self-care (01) ==
LOC: ER 13:08
DX: M16.12 Unilateral primary osteoarthritis, left hip (principal); M87.9 Osteonecrosis, unspecified; N39.0 Urinary tract infection, site not specified; J44.9 Chronic obstructive pulmonary disease, unspecified; E11.9 Type 2 diabetes mellitus without complications; K21.9 Gastro-esophageal reflux disease without esophagitis; I10 Essential (primary) hypertension; F17.210 Nicotine dependence, cigarettes, uncomplicated; Z79.899 Other long term (current) drug therapy; Z88.5 Allergy status to narcotic agent; Z90.710 Acquired absence of both cervix and uterus
CPT/HCPCS: 36415; 80053; 83735; 85025; 85610; 85730; 93005; 94761; 96372; 99284; J1885; J2001

== ENCOUNTER 2019-07-15 17:03 | Emergency (ER) | payer MEDICARE, MEDICAID ==
[~2019-07-15] VITALS: Ht 160 cm; Wt 68.0 kg
[~2019-07-15 17:03] MED LIST changes: -LISI-646 PO
[2019-07-15 19:03] LABS: Basophils # (auto) 0.1 uL; Basophils % (auto) 0.9 % (0.0-2.0); Eosinophils # (auto) 0.3 uL; Eosinophils % (auto) 3.1 % (0.0-7.0); Hematocrit 38.8 % (36.0-46.0); Lymphocytes # (auto) 2.6 uL; Lymphocytes % (auto) 29.8 % (10.0-50.0); Mean Corpuscular Hemoglobin 28.7 pg (28.0-32.0); Mean Corpuscular Hgb Conc. 33.6 g/dL (32.0-36.0); Mean Corpuscular Volume 85.4 fL (80.0-100.0); Monocytes # (auto) 0.6 uL; Monocytes % (auto) 6.8 % (0.0-12.0); Neutrophils # (auto) 5.2 uL; Neutrophils % (auto) 59.4 % (37.0-80.0); Nucleated Red Blood Cells % 0.1 %; Platelet Count (auto) 281 10^3/uL (140-450); Red Blood Cells 4.54 10^6/uL (4.0-5.20); White Blood Cell 8.8 10^3/uL (4.4-10.8)
[2019-07-15 19:24] LABS: Albumin 3.9 g/dL (3.4-5.0); Calcium 8.9 mg/dL (8.5-10.1); Potassium 3.2 mmol/L (3.5-5.1)
[2019-07-15 19:28] LABS: BUN/Creatinine Ratio 9.1; Bilirubin, Total 0.3 mg/dL (0.2-1.0); Total Protein 8.2 g/dL (6.4-8.2)
[2019-07-16] MEDS ORDERED: POTASSIUM EFFERVESENT TAB 25 MEQ PO ONE (00:15)
[2019-07-16] MEDS ORDERED: HYDROmorphone HCL 2 MG/ML VL IV ONE (01:45)
[2019-07-16] MEDS ORDERED: ONDANSETRON HCL 4 MG/2 ML VIAL IV ONE (01:45)
[2019-07-16 04:20] VITALS: BP 103/65
== END 2019-07-16 04:54 | disposition home or self-care (01) ==
LOC: ER 17:03
DX: M54.32 Sciatica, left side (principal); R25.2 Cramp and spasm; J44.9 Chronic obstructive pulmonary disease, unspecified; E11.9 Type 2 diabetes mellitus without complications; K21.9 Gastro-esophageal reflux disease without esophagitis; E78.5 Hyperlipidemia, unspecified; I10 Essential (primary) hypertension
CPT/HCPCS: 36415; 72131; 80053; 85025; 93971; 96374; 96375; 99284; J1170; J2405

== ENCOUNTER 2020-04-21 16:47 | Inpatient (IN) | payer MEDICARE, MEDICAID ==
[~2020-04-21] VITALS: Ht 160 cm; Wt 71.2 kg
[~2020-04-21 16:47] MED LIST changes: -LISI30TA36 PO; +LISI30TA4 PO; -VENL75TA PO; +VENL75TA2 PO
[2020-04-21] MEDS ORDERED: methylPREDNISolone SOD SUCC 125 MG/2 ML VL IV ONE (17:15)
[2020-04-21 17:36] LABS: Eosinophils # (auto) 0 10 ^3/uL (0-0.8); Hematocrit 39.8 % (36.0-46.0); Hemoglobin 12.8 g/dL (12.2-16.2); Neutrophils # (auto) 14.3 10 ^3/uL (1.6-8.6)
[2020-04-21 17:38] LABS: Basophils # (auto) 0 10 ^3/uL (0-0.2); Basophils % (auto) 0.2 % (0.0-2.0); Eosinophils % (auto) 0.1 % (0.0-7.0); Lymphocytes % (auto) 6.3 % (10.0-50.0); Mean Corpuscular Hemoglobin 26.4 pg (28.0-32.0); Mean Corpuscular Hgb Conc. 32.1 g/dL (32.0-36.0); Mean Corpuscular Volume 82.1 fL (80.0-100.0); Monocytes # (auto) 0.7 10 ^3/uL (0-1.3); Monocytes % (auto) 4.6 % (0.0-12.0); Neutrophils % (auto) 88.8 % (37.0-80.0); Nucleated Red Blood Cells % 0.1 %; Platelet Count (auto) 335 10^3/uL (140-450); Red Blood Cells 4.84 10^6/uL (4.0-5.20); Red Cell Distribution Width 14.8 % (11.8-14.3); White Blood Cell 16.1 10^3/uL (4.4-10.8)
[2020-04-21 17:49] LABS: Alanine Aminotransferase 38 U/L (13-56); Albumin 2.9 g/dL (3.4-5.0); Anion Gap 8 (5-15); Aspartate Aminotransferase 54 U/L (15-37); BUN/Creatinine Ratio 17.6; Blood Urea Nitrogen 30 mg/dL (7-18); Calcium 8.6 mg/dL (8.5-10.1); Carbon Dioxide 27 mmol/L (21-32); Chloride 95 mmol/L (98-107); GFR African American 39 mL/min; GFR Non-African American 32 mL/min; Glucose 120 mg/dL (74-106); Magnesium 1.7 mg/dL (1.6-2.6); Potassium 3.6 mmol/L (3.5-5.1); Sodium 130 mmol/L (136-145)
[2020-04-21 17:53] LABS: INR 1.03 (0.9-1.15); Partial Thromboplastin Time 23.4 sec (23.64-32.05)
[2020-04-21 17:54] LABS: Alkaline Phosphatase 99 U/L (45-117); Bilirubin, Total 0.8 mg/dL (0.2-1.0)
[2020-04-21 18:21] VITALS: BP 133/82
[2020-04-21] MEDS ORDERED: FUROSEMIDE 40 MG/4 ML VIAL IV ONE (20:30)
[2020-04-21] MEDS ORDERED: AZITHROMYCIN 500MG/ 250ML 250 ML IV ONE (20:30)
[2020-04-21] MEDS ORDERED: NITROGLYCERIN 0.4 MG SL TAB SL PRN (22:00)
[2020-04-21] MEDS ORDERED: SODIUM CHLORIDE 0.9% 1,000 ML IV SCH (22:48)
[2020-04-21] MEDS ORDERED: ACETAMINOPHEN 500 MG TAB PO PRN (23:00)
[2020-04-21] MEDS ORDERED: DEXTROSE (50%) 50ML SYRG IV PRN (23:00)
[2020-04-21] MEDS ORDERED: ONDANSETRON HCL 4 MG/2 ML VIAL IV PRN (23:00)
[2020-04-21] MEDS ORDERED: TEMAZEPAM 15 MG CAP PO PRN (23:00)
[2020-04-21] MEDS ORDERED: IOHEXOL 350 MG/ML 100ML IJ ONE (23:17)
[2020-04-21 23:59] VITALS: BP 138/64
--- NOTE | 2020-04-21 23:59 | NUR ---
Telemetry admit from [facility] admitted to Telemetry unit after SBAR received. Patient oriented to Devika Tse RN primary RN, unit, room, bed, and unit policies regarding patient care and visiting hours. Patient now on continuous telemetry monitoring, tele box #6 . Patient placed on bedside oxygen, weighed by bedscale and encouraged to call if they need something. All questions and concerns addressed, patient verbalized understanding. Bed is in lowest locked position with bed rails up x2 and call light is within reach of the patient. Incentive spirometer at the bedside and educated of its benefits and use. Bed side commode is at the bedside.
--- NOTE | 2020-04-22 01:33 | NUR ---
Unable to reconcile all medications: Unable to reconcile all of patients medications. Instructed patient to have family member sent list of patients medications to be updated in chart.
[2020-04-22 05:00] VITALS: BP 130/60
[2020-04-22] MEDS: GABAPENTIN 300 MG CAP PO SCH ×3 (06:35→21:22)
[2020-04-22] MEDS: ACCU-CHEK COMFORT CURVE STRIP VI SCH ×4 (06:35→22:13)
[2020-04-22] MEDS: InsuLIN REG 1unit/0.01ml Soln (100units/ml) SC SCH ×4 (06:43→22:00)
[2020-04-22 07:13] LABS: Basophils # (auto) 0 10 ^3/uL (0-0.2); Basophils % (auto) 0.1 % (0.0-2.0); Eosinophils # (auto) 0 10 ^3/uL (0-0.8); Hemoglobin 12.3 g/dL (12.2-16.2); Lymphocytes # (auto) 0.6 10 ^3/uL (0.4-5.4); Lymphocytes % (auto) 7.8 % (10.0-50.0); Mean Corpuscular Hemoglobin 27.2 pg (28.0-32.0); Mean Corpuscular Hgb Conc. 32.5 g/dL (32.0-36.0); Mean Corpuscular Volume 83.7 fL (80.0-100.0); Monocytes # (auto) 0.4 10 ^3/uL (0-1.3); Monocytes % (auto) 4.4 % (0.0-12.0); Neutrophils % (auto) 87.7 % (37.0-80.0); Platelet Count (auto) 304 10^3/uL (140-450); Red Blood Cells 4.54 10^6/uL (4.0-5.20); Red Cell Distribution Width 14.8 % (11.8-14.3)
--- NOTE | 2020-04-22 07:30 | NUR ---
Opening Shift Note Assumed care of patient, awake and alert. No S/S of distress/SOB or pain. Instructed on POC and to call for assist PRN, will continue to monitor for changes Q1hr and PRN. Bed is locked and in lowest position. Call light within reach.
[2020-04-22 07:34] LABS: Potassium 3.3 mmol/L (3.5-5.1)
[2020-04-22 07:45] LABS: Albumin 2.6 g/dL (3.4-5.0); BUN/Creatinine Ratio 20.1; Bilirubin, Total 0.5 mg/dL (0.2-1.0); Calcium 8.5 mg/dL (8.5-10.1); Total Protein 8.4 g/dL (6.4-8.2)
[2020-04-22 08:00] VITALS: BP 128/47
[2020-04-22] MEDS: ALBUTEROL SULF HFA 90MCG INH 200DOSE IN SCH ×3 (08:28→22:20)
[2020-04-22 09:00] VITALS: BP 120/47
[2020-04-22] MEDS ORDERED: ENOXAPARIN SOD 40 MG/0.4 ML SYRINGE SC SCH (10:00)
[2020-04-22] MEDS: PANTOPRAZOLE 40 MG TAB PO SCH (11:02)
[2020-04-22] MEDS: ASCORBIC ACID 1,000 MG TAB PO SCH (11:03)
[2020-04-22] MEDS: ZINC SULFATE 220mg CAP or TAB PO SCH (11:03)
[2020-04-22] MEDS ORDERED: METHADONE HCL 10 MG TAB PO ONE (12:00)
[2020-04-22] MEDS ORDERED: FUROSEMIDE 40 MG/4 ML VIAL IV ONE (12:00)
--- NOTE | 2020-04-22 12:47 | NUR ---
CALLED [facility] TO VER[facility] SPOKE WITH RENITA, STATES SHE WILL CALL ME BACK
--- NOTE | 2020-04-22 13:00 | NUR ---
[facility] RECEIVED PHONE CALL FROM [facility] MATTHEW HARRIS REGARDING PATIENTS METHADONE DOSAGE. MATTHEW HARRIS STATED PATIENT IS TAKING 100 MG METHADONE ONCE A DAY. PATIENT WAS LAST GIVEN MEDICATION ON April BY [facility]. INFORMATION WILL BE RELAYED TO PHARMACY.
[2020-04-22 14:00] VITALS: BP 134/92
[2020-04-22] MEDS: CHOLECALCIFEROL (VITD3) 1,000UNIT=25mCg TAB PO SCH (15:35)
--- NOTE | 2020-04-22 16:20 | NUR ---
PULMONOLOGY DR DAVILA AT BESIDE, DISCUSSING POC, NEW ORDERS RECEIVED, CONT CARE
[2020-04-22 17:00] VITALS: BP 153/86
[2020-04-22] MEDS ORDERED: POTASSIUM EFFERVESENT TAB 25 MEQ PO ONE (19:30)
[2020-04-22] MEDS: cefTRIAXone 1GM/50ML D5W 50 ML IV SCH (21:22)
[2020-04-22] MEDS: ATORVASTATIN 20 MG TAB PO SCH (21:22)
[2020-04-22] MEDS: ENOXAPARIN SOD 60 MG/0.6 ML SYRINGE SC SCH (21:23)
[2020-04-22 22:00] VITALS: BP 118/86
[2020-04-22] MEDS ORDERED: PRAVASTATIN SODIUM 20 MG TAB PO SCH (22:00)
[2020-04-22] MEDS: DOXYCYCLINE 100MG/250ML 250 ML IV SCH (22:13)
[2020-04-23 05:00] VITALS: BP 121/88
[2020-04-23] MEDS: GABAPENTIN 300 MG CAP PO SCH ×3 (05:25→21:57)
[2020-04-23] MEDS: ACCU-CHEK COMFORT CURVE STRIP VI SCH ×4 (05:32→22:42)
[2020-04-23] MEDS: InsuLIN REG 1unit/0.01ml Soln (100units/ml) SC SCH ×4 (05:32→22:42)
[2020-04-23] MEDS: ALBUTEROL SULF HFA 90MCG INH 200DOSE IN SCH ×3 (07:22→22:00)
--- NOTE | 2020-04-23 07:22 | NUR ---
Respiratory note: AT BEDSIDE FOR ASSESSMENT. HR 86, RR 20, SPO2 92% ON 6LPM OXYMIZER. BREATH SOUNDS EXP WHEEZING T/O. MDI INHALER TX ADMINISTERED WITH SPACER, PT TOLERATED WELL, NO ADVERSE REACTIONS NOTED. PT ON CONTINUOUS POX MONITORING CONNECTED TO TELEMETRY BOX. WILL CONTINUE TO MONITOR.
[2020-04-23 07:23] LABS: Basophils # (auto) 0 10 ^3/uL (0-0.2); Monocytes # (auto) 0.8 10 ^3/uL (0-1.3); Neutrophils # (auto) 11.7 10 ^3/uL (1.6-8.6); Neutrophils % (auto) 80.7 % (37.0-80.0); Nucleated Red Blood Cells % 0.1 %; White Blood Cell 14.5 10^3/uL (4.4-10.8)
[2020-04-23 07:26] LABS: Basophils % (auto) 0.3 % (0.0-2.0); Eosinophils # (auto) 0.2 10 ^3/uL (0-0.8); Eosinophils % (auto) 1.3 % (0.0-7.0); Hematocrit 35.7 % (36.0-46.0); Hemoglobin 11.5 g/dL (12.2-16.2); Lymphocytes # (auto) 1.8 10 ^3/uL (0.4-5.4); Lymphocytes % (auto) 12.3 % (10.0-50.0); Mean Corpuscular Hemoglobin 26.6 pg (28.0-32.0); Mean Corpuscular Hgb Conc. 32.3 g/dL (32.0-36.0); Mean Corpuscular Volume 82.5 fL (80.0-100.0); Monocytes % (auto) 5.4 % (0.0-12.0); Platelet Count (auto) 353 10^3/uL (140-450); Red Blood Cells 4.32 10^6/uL (4.0-5.20); Red Cell Distribution Width 14.5 % (11.8-14.3)
[2020-04-23 07:39] LABS: BUN/Creatinine Ratio 24.3; Calcium 8.8 mg/dL (8.5-10.1); Potassium 3.4 mmol/L (3.5-5.1)
--- NOTE | 2020-04-23 07:55 | NUR ---
ABG DRAWN ORDERED, RESULTS TO FOLLOW
--- NOTE | 2020-04-23 08:00 | NUR ---
Opening Shift Note Assumed care of patient, awake, alert and oriented X4. No S/S of distress. complains of SOB. O2 @ 9 LPM via Oxymizer with sats @ 94%. Patient complains of chronic pain. Tele# 6, sinus rhythm @ 87 bpm. IV to right antecubital, 20 gauge, patent and saline locked. Instructed on POC and to call for assist PRN, verbalized understanding. Bed locked, in lowest position, call light within reach, will continue to monitor for changes Q1hr and PRN.
[2020-04-23] MEDS: cefTRIAXone 1GM/50ML D5W 50 ML IV SCH ×2 (09:48→23:10)
[2020-04-23] MEDS: DexAMETHasone SOD PHOS 4 MG/1ML SDV INJ IV SCH (10:52)
[2020-04-23] MEDS: DOXYCYCLINE 100MG/250ML 250 ML IV SCH (10:52)
[2020-04-23] MEDS: ENOXAPARIN SOD 60 MG/0.6 ML SYRINGE SC SCH (10:53)
[2020-04-23] MEDS: ZINC SULFATE 220mg CAP or TAB PO SCH (10:53)
[2020-04-23] MEDS: PANTOPRAZOLE 40 MG TAB PO SCH (10:53)
[2020-04-23] MEDS: METHADONE HCL 10 MG TAB PO SCH ×2 (10:53→17:15)
[2020-04-23] MEDS: ASCORBIC ACID 1,000 MG TAB PO SCH (10:53)
[2020-04-23] MEDS: CHOLECALCIFEROL (VITD3) 1,000UNIT=25mCg TAB PO SCH ×2 (10:53→17:15)
[2020-04-23] MEDS: FUROSEMIDE 40 MG/4 ML VIAL IV SCH (12:38)
[2020-04-23 12:41] VITALS: BP 152/87
--- NOTE | 2020-04-23 15:50 | NUR ---
Respiratory note: INHALER MDI TX ADMINISTERED, NO ADVERSE REACTIONS NOTED. HR 108, RR 22, SPO2 97% ON 7LPM OXYMIZER. TITRATED DOWN TO 6LPM OXYMIZER, SPO2 94%. NO S/S OF DISTRESS NOTED.
--- NOTE | 2020-04-23 16:45 | NUR ---
ROUNDS Dr Ramirez at bedside for rounds, new orders received and followed through. Patient updated on plan of care, verbalized understanding.
[2020-04-23 17:00] VITALS: BP 130/70
--- NOTE | 2020-04-23 19:26 | NUR ---
Care endorsed to FADUMO Richardson, night nurse.
[2020-04-23] MEDS: ATORVASTATIN 20 MG TAB PO SCH (21:57)
[2020-04-23 22:00] VITALS: BP 100/47
[2020-04-23] MEDS: diphenhdrAMINE HCL 50 MG/1 ML VL IV SCH (23:09)
[2020-04-23] MEDS: ACETAMINOPHEN 650 mg PER 20 mL UD PO SCH (23:09)
[2020-04-23] MEDS: methylPREDNISolone SOD SUCC 40 MG/ML VL IV SCH (23:09)
[2020-04-23] MEDS: TOCILIZUMAB 400 MG in SODIUM CHL 0.9% 80 ML IV SCH (23:44)
[2020-04-24] MEDS: DOXYCYCLINE 100MG/250ML 250 ML IV SCH ×3 (00:58→23:28)
[2020-04-24 05:00] VITALS: BP 142/88
[2020-04-24] MEDS: GABAPENTIN 300 MG CAP PO SCH ×2 (05:24→21:15)
[2020-04-24] MEDS: ACCU-CHEK COMFORT CURVE STRIP VI SCH ×4 (06:46→22:02)
[2020-04-24] MEDS: InsuLIN REG 1unit/0.01ml Soln (100units/ml) SC SCH ×4 (06:47→22:03)
--- NOTE | 2020-04-24 07:48 | NUR ---
Opening Note Assumed pt from PEMA RN. Pt is a/ox4 with no s/s of distress or SOB. Pt is currently on 6L via oxymizer saturating in the mid 90s. Breath sounds throughout are wheezy. Discussed POC with pt; pt verbalized understanding. Safety measures maintained with call light within reach, bed in lowest position and side rails up. Will continue to monitor for changes.
[2020-04-24] MEDS: ALBUTEROL SULF HFA 90MCG INH 200DOSE IN SCH ×3 (07:50→22:49)
--- NOTE | 2020-04-24 07:50 | NUR ---
Respiratory note: INHALER MDI TX ADMINISTERED, NO ADVERSE REACTIONS NOTED. HR 89, RR 16, SPO2 98% ON 5LPM OXYMIZER. NO S/S OF DISTRESS NOTED.
[2020-04-24] MEDS: ACETAMINOPHEN 650 mg PER 20 mL UD PO SCH (07:59)
[2020-04-24] MEDS: diphenhdrAMINE HCL 50 MG/1 ML VL IV SCH (07:59)
[2020-04-24] MEDS: cefTRIAXone 1GM/50ML D5W 50 ML IV SCH ×2 (07:59→21:14)
[2020-04-24] MEDS: methylPREDNISolone SOD SUCC 40 MG/ML VL IV SCH (08:00)
[2020-04-24 09:00] VITALS: BP 140/84
[2020-04-24] MEDS: TOCILIZUMAB 400 MG in SODIUM CHL 0.9% 80 ML IV SCH (09:02)
[2020-04-24] MEDS: ENOXAPARIN SOD 60 MG/0.6 ML SYRINGE SC SCH (09:42)
[2020-04-24] MEDS: DexAMETHasone SOD PHOS 4 MG/1ML SDV INJ IV SCH (09:42)
[2020-04-24] MEDS: ASCORBIC ACID 1,000 MG TAB PO SCH (09:42)
[2020-04-24] MEDS: CHOLECALCIFEROL (VITD3) 1,000UNIT=25mCg TAB PO SCH (09:42)
[2020-04-24] MEDS: PANTOPRAZOLE 40 MG TAB PO SCH (09:42)
[2020-04-24] MEDS: ZINC SULFATE 220mg CAP or TAB PO SCH (09:42)
[2020-04-24] MEDS: METHADONE HCL 10 MG TAB PO SCH (10:00)
[2020-04-24] MEDS: FUROSEMIDE 40 MG/4 ML VIAL IV SCH (10:25)
--- NOTE | 2020-04-24 10:43 | NUR ---
Shortness of Breath Pt states that she is currently experiencing some SOB, currently on 6L via oxymizer. Placed pt in high fowlers; pt is visibly having difficulty breathing. Encouraged pt continue to take deep breaths; O2 is currently at 86%. Pt encouraged to take deep breaths, placed pt on 8L via oxymizer. Pt's O2 sat is currently at 93%. Placed pt in chair at this time. Will continue to monitor. Addendum: 04/24/20 at 1521 by GRZEGORZ SARGENT RN RN Update Pt has since be titrated back down to 6L via oxymizer. Currently saturating in the high 90s. No s/s of distress noted. Will continue to monitor.
[2020-04-24 13:00] VITALS: BP 96/63
--- NOTE | 2020-04-24 14:45 | NUR ---
Respiratory note: INHALER MDI TX ADMINISTERED, NO ADVERSE REACTIONS NOTED. HR 102, RR 18, SPO2 93% ON 6LPM OXYMIZER. NO S/S OF DISTRESS NOTED.
--- NOTE | 2020-04-24 15:31 | NUR ---
Dr Stokes at Bedside MD to see pt. No new orders at this time. Will continue to monitor.
[2020-04-24 17:59] VITALS: BP 158/116
[2020-04-24 18:06] VITALS: BP 149/80
[2020-04-24] MEDS: ATORVASTATIN 20 MG TAB PO SCH (21:15)
[2020-04-24 22:00] VITALS: BP 155/99
[2020-04-25] VITALS (39 sets, daily range): BP systolic 82–239; BP diastolic 45–146
[2020-04-25] MEDS: InsuLIN REG 1unit/0.01ml Soln (100units/ml) SC SCH ×4 (06:09→21:18)
[2020-04-25] MEDS: ACCU-CHEK COMFORT CURVE STRIP VI SCH ×4 (06:10→21:18)
[2020-04-25] MEDS: ALBUTEROL SULF HFA 90MCG INH 200DOSE IN SCH (07:43)
[2020-04-25] MEDS: cefTRIAXone 1GM/50ML D5W 50 ML IV SCH (08:32)
[2020-04-25] MEDS: METHADONE HCL 10 MG TAB PO SCH (08:33)
[2020-04-25] MEDS: PANTOPRAZOLE 40 MG TAB PO SCH (08:34)
[2020-04-25] MEDS: GABAPENTIN 300 MG CAP PO SCH (08:34)
[2020-04-25] MEDS: ZINC SULFATE 220mg CAP or TAB PO SCH (08:34)
[2020-04-25] MEDS: ASCORBIC ACID 1,000 MG TAB PO SCH (08:34)
[2020-04-25] MEDS: DexAMETHasone SOD PHOS 4 MG/1ML SDV INJ IV SCH ×2 (08:34→21:10)
[2020-04-25] MEDS: CHOLECALCIFEROL (VITD3) 1,000UNIT=25mCg TAB PO SCH (08:34)
[2020-04-25] MEDS: ENOXAPARIN SOD 60 MG/0.6 ML SYRINGE SC SCH (08:35)
[2020-04-25] MEDS: FUROSEMIDE 40 MG/4 ML VIAL IV SCH (08:35)
--- NOTE | 2020-04-25 11:30 | NUR ---
Midline Placement: Patient educated on need for midline placement. All risks and benefits explained and all questions and concerns addresses prior to procedure. 18g/10cm midline inserted via RIGHT BRACHIAL vein using Ultrasound. Sterile technique utilized. Blood return obtained from THE lumen and flushed easily with NS using proper technique. Midline secured with saline lock; biodisc and occlusive dressing applied. Primary RN notified. Midline lot # [id number].
--- NOTE | 2020-04-25 12:00 | NUR ---
PT EPISODE AFTER MIDLINE PLACEMENT, PT EXPRESSED "I CANT BREATHE" AND KEPT PULLING OFF HER OXYMIZER. PT WAS POSITIONED IN HIGH FOWLERS AND OXYMIZER AT 10L/MIN PLACED BACK ONTO PT. PT STILL PRESENTED WITH LABORED BREATHING. OXYMIZER TURNED TO 15L/MIN. PRIMARY RN NOTIFIED. PT WAS THEN PLACED ONTO A NONREBREATHER MASK AT 15L/MIN, WITH 02 SATURATIONS AT 82%. CODE ASSIST WAS CALLED, PT WAS PLACED ON LARD BLEACHER AND RT WAS CALLED STAT. PT BECAME UNRESPONSIVE AND HAD NO REACTION TO HARD STERNAL RUB. PT NEVER LOST PULSES, BUT PRESENTED WITH APNEIC BREATHING. RT ARRIVED, PT WAS SWITCHED OVER TO AN AMBU BAG. 02 SATURATIONS INCREASED TO 96% ER MD HERNANDES CAME TO BEDSIDE, THIS RN PUSHED ETOMIDATE 20MG AND SUCCHOLYNINE 100MG, AND PT WAS THEN INTUBATED WITH AND 8.0 TUBE, MARKED 24 AT THE LIP. 22 G LEFT UPPER ARM IV WAS ALSO OBTAINED BY THIS RN.
--- NOTE | 2020-04-25 12:00 | NUR ---
PT STATUS CHANGE MIDLINE FADUMO FOUNTAIN NOTIFIED ME PATIENT SEEMED TO BE HAVING A PANIC ATTACK, STATING, "I CAN'T BREATHE". THIS STATUS CHANGE HAPPENED AFTER MIDLINE PLACEMENT. WHILE ENTERING PATIENTS ROOM PATIENT KEPT PULLING OFF HER OXYMIZER, WHICH HAD NOW BEEN INCREASED FROM 6-10L/MIN BY FADUMO FOUNTAIN. PT WAS GASPING FOR AIR AND WAS POSITIONED IN HIGH FOWLERS AND OXYMIZER AT 10L/MIN PLACED BACK ONTO PT. PT STILL PRESENTED WITH LABORED BREATHING. OXYMIZER TURNED TO 15L/MIN. PT WAS THEN PLACED ONTO A NONREBREATHER MASK AT 15L/MIN, WITH 02 SATURATIONS AT 82%. CODE ASSIST WAS CALLED AT THIS TIME. PT WAS PLACED ON EXTERNAL RELATIONS DIRECTOR AND RT WAS CALLED STAT.
--- NOTE | 2020-04-25 12:04 | NUR ---
CODE ASSIST IN PROCESS CANCELLATION CLERK CIELO AND SHOE REPAIRER APPRENTICEFADUMO العلي AT BED SIDE
--- NOTE | 2020-04-25 12:05 | NUR ---
PATIENT NOW UNRESPONSIVE WITH PULSES PRESENT, APNEIC BREATHING NOTED WITH CYANOSIS. RT ARRIVED, PT WAS SWITCHED OVER TO AN AMBU BAG. 02 SATURATIONS INCREASED TO 96%. AWAITING MD ARRIVAL AT THIS TIME.
[2020-04-25] MEDS ORDERED: ETOMIDATE (2MG/ML) 20ML VIAL IV ONE (12:06)
[2020-04-25] MEDS ORDERED: SUCCINYLCHOLINE CHLORIDE 20 MG/ML 10ML VIAL IV ONE (12:06)
[2020-04-25] MEDS ORDERED: ROCURONIUM 10MG/ML 10ML VIAL IV ONE (12:07)
--- NOTE | 2020-04-25 12:18 | NUR ---
MD HERNANDES AT BED SIDE FOR INTUBATION PREP STARTED
--- NOTE | 2020-04-25 12:21 | NUR ---
INTUBATION АЛЕКСАНДР RN PUSHED ETOMIDATE 20MG AND SUCCHOLYNINE 100MG, AND PT WAS THEN INTUBATED WITH AND 8.0 TUBE, MARKED 24 AT THE LIP.
[2020-04-25] MEDS ORDERED: MIDAZOLAM DRIP 50 mg/50mL 50 ML IV ONE (12:22)
--- NOTE | 2020-04-25 12:25 | NUR ---
Rose catheter insertion Rose catheter 16 guage Yoruba inserted with clean sterile technique.
--- NOTE | 2020-04-25 12:30 | NUR ---
Nasogastric tube insertion NGT inserted per MD order. Placement verified by aspiration of stomach contents, auscultation. Awaiting chest xray techs.
--- NOTE | 2020-04-25 12:40 | NUR ---
Chest xray techs at bed side
--- NOTE | 2020-04-25 12:45 | NUR ---
SEDATION Versed gtt. started post intubation for sedation as per Dr. Pantoja who intubated the pt., gtt. infusing well via her newly inserted MAIKEL midline.
--- NOTE | 2020-04-25 12:47 | NUR ---
IV insertion IV access obtained, via clean sterile technique by inserting 22 gauge catheter at LEFT UPPER ARM. IV secured properly. No trauma to site.
--- NOTE | 2020-04-25 12:47 | NUR ---
VERSED INCREASED TO 10MCG BY ATOMIC FUEL ASSEMBLERFADUMO العلي
--- NOTE | 2020-04-25 13:10 | NUR ---
RT NOTE: MD DAVILA CALLED AND MESSAGE LEFT REGARDING CRITICAL VALUES ON POST INTUBATION ABG. AWAITING CALL BACK.
--- NOTE | 2020-04-25 13:15 | NUR ---
RT NOTE: FOUND Greg IQBAL IN ED TO REPORT CRITICAL ABG RESULTS. WAS TOLD THAT HE WAS TOO BUSY TO LOOK AT THEM AND I NEED TO CALL MD VILLA. WILL ATTEMPT TO CALL
--- NOTE | 2020-04-25 13:21 | NUR ---
RT NOTE: MD VILLA RETURNED PAGE AND STATED HE WAS NOT THE PTS PRIMARY, IT WAS . WILL ATTEMPT TO CALL
--- NOTE | 2020-04-25 13:25 | NUR ---
RT NOTE: MD MCNAMARA HAS BEEN PAGED. AWAITING CALL BACK. AT THIS TIME, I HAVE ATTEMPTED 4 DIFFERENT DOCTORS TO TRY AND REPORT CRITICAL VALUES. WILL CONTINUE TO TRY AND GET AN MD TO REPORT RESULTS AND GET CHANGES FOR VENT.
--- NOTE | 2020-04-25 13:30 | NUR ---
ASSESS / PT.'S CONDITION Pt. tolerating ventilator, appears comfortable in bed, versed gtt. keeping pt. comfortably sedated, will monitor pt.
--- NOTE | 2020-04-25 13:36 | NUR ---
RT NOTE: SECOND CALL MADE TO Jeremias QUAN TO A SECOND NUMBER. UNABLE TO LEAVE MESSAGE
--- NOTE | 2020-04-25 13:37 | NUR ---
RT NOTE: SECOND PAGE PUT OUT FOR MD MCNAMARA. AWAITING CALL BACK
--- NOTE | 2020-04-25 13:39 | NUR ---
RT NOTE: MD MCNAMARA CALLED BACK AND CRITICALS REPORTED. ORDERS GIVEN TO INCREASE Vt TO 500 WITH ABG 2HRS POST
[2020-04-25] MEDS: DOXYCYCLINE 100MG/250ML 250 ML IV SCH (13:56)
[2020-04-25] MEDS ORDERED: PIPERACILLIN-TAZOB 3.375GM 100 ML IV ONE (14:00)
[2020-04-25] MEDS ORDERED: NOREPINEPHRINE 8 MG/250ML KIT 250 ML IV PRN (14:30)
[2020-04-25] MEDS: MIDAZOLAM DRIP 50 mg/50mL 50 ML IV SCH (14:38)
[2020-04-25 14:45] LABS: Basophils # (auto) 0 10 ^3/uL (0-0.2); Eosinophils # (auto) 0 10 ^3/uL (0-0.8); Eosinophils % (auto) 0.4 % (0.0-7.0); Hemoglobin 12.2 g/dL (12.2-16.2); Lymphocytes # (auto) 1.2 10 ^3/uL (0.4-5.4); Mean Corpuscular Hemoglobin 26.8 pg (28.0-32.0); Mean Corpuscular Volume 82.1 fL (80.0-100.0); Nucleated Red Blood Cells % 0.1 %
[2020-04-25 14:47] LABS: Basophils % (auto) 0.1 % (0.0-2.0); Hematocrit 37.3 % (36.0-46.0); Mean Corpuscular Hgb Conc. 32.7 g/dL (32.0-36.0); Monocytes # (auto) 0.7 10 ^3/uL (0-1.3); Monocytes % (auto) 7.8 % (0.0-12.0); Neutrophils # (auto) 7.7 10 ^3/uL (1.6-8.6); Neutrophils % (auto) 79.7 % (37.0-80.0); Platelet Count (auto) 377 10^3/uL (140-450); Red Blood Cells 4.55 10^6/uL (4.0-5.20); Red Cell Distribution Width 14.3 % (11.8-14.3); White Blood Cell 9.7 10^3/uL (4.4-10.8)
[2020-04-25 15:04] LABS: Albumin 2.5 g/dL (3.4-5.0); Magnesium 1.8 mg/dL (1.6-2.6); Potassium 3.4 mmol/L (3.5-5.1)
[2020-04-25 15:08] LABS: BUN/Creatinine Ratio 30.2; Bilirubin, Total 0.3 mg/dL (0.2-1.0); Total Protein 7.3 g/dL (6.4-8.2)
--- NOTE | 2020-04-25 15:26 | NUR ---
Est energy needs 4902-6054 kcal (25-27 kcal/kg BW 72kg) Est protein needs 43-54g (0.6-0.75g/kg BW 72kg r/t elevated RFTs) will reassess prn. Consider Glucerna 1.2 at 60 ml/hr if pt TF is considered per MD approval d/t new intubation Addendum: 04/25/20 at [address] Amended: Links added.
[2020-04-25 15:39] LABS: CRP High Sensitivity 1.66 mg/dL (< 0.3)
--- NOTE | 2020-04-25 15:39 | NUR ---
CALL TO NOK CALL OUT TO CANDY (DAUGHTER) ON [phone] TO GIVE UPDATE ON CHANGE IN PATIENTS STATUS. NO ANSWER. VOICEMAIL LEFT WITH [facility]. WILL AWAIT CALL BACK.
--- NOTE | 2020-04-25 15:45 | NUR ---
TRANSITION OF CARE report given to Brook Gray POSTAL SUPPORT EMPLOYEE to take over care of pt., noted pt.'s low bp, 250ml NS bolus given, will continue to monitor pt.
--- NOTE | 2020-04-25 15:46 | NUR ---
Assumed care of patient at this time from Cristo, ICU medical charge entry specialist. Received pt on mechanical ventilator, sedated on versed of 2mg/hr. Per day shift telegraph inspector, pt was a code assist and needed to be emergently intubated due to unresponsiveness and respiratory failure. Pt is COVID positive. Lung sound coarse to auscultation and diminished at the bases.Pt has a size 8.0 and 24 at the lip. Vent settings of AC 16, VT 500, RATE 16, FIO2 50% AND PEEP OF 5. Pt saturations are 99% with white secretions suctioned out of ET tube. Positive cough and gag noted. Pt attempted to reach for tube upon suctioning. Will titrate sedation accordingly. MAIKEL midline, patent and infusing versed. See IV spreadsheet for details. Rose catheter in place patent and draining clear yellow urine to gravity. OGT to L nare clamped. Skin intact. Full assessment done See interventions. All alarms on and audible. Pt on desk monitor with pads.
--- NOTE | 2020-04-25 16:34 | NUR ---
Received phone call from Dr. Workman. Updated on pt status and new orders received. Will carry out through EMAR.
[2020-04-25] MEDS ORDERED: POTASSIUM CHL 20MEQ/100ML 100 ML IV ONE (16:45)
[2020-04-25] MEDS ORDERED: MAGNESIUM SULFATE 1GM/100ML 100 ML IV ONE (16:45)
[2020-04-25] MEDS: PIPERACILLIN-TAZOB 3.375GM 100 ML IV SCH (17:24)
--- NOTE | 2020-04-25 17:30 | NUR ---
Started Levophed per MD order. Pt's systolic b/p remaining in 80's with MAP below 65.
--- NOTE | 2020-04-25 19:00 | NUR ---
Care endorsed to Andrea NARAYANAN
--- NOTE | 2020-04-25 19:00 | NUR ---
Opening shift note: Primary RN Andrea received report on patient. Pt currently intubated ETT 8.0/ 24cm @LL, VENT settings: AC 16, TV 500, FIO2 50%, PEEP 8, O2 Saturation 97%. Bilateral lung sounds diminished. Right upper midline infusing Versed @ 7, Levo @ 1. NGT left nare clamped, placement confirmed. Rose catheter draining via gravity with yellow urine. Safety precautions in place. Will continue to monitor. Patient on isolation for COVID-19.
[2020-04-25] MEDS ORDERED: fentaNYL Drip 2500mCg/250mlNS 250 ML IV SCH (19:40)
--- NOTE | 2020-04-25 19:50 | NUR ---
Machine Tank Operator at bedside rounding on patient. Machine Tank Operator recommends to get patient down to ICU but is aware there are no ICU beds available at this time.
[2020-04-25] MEDS: fentaNYL Drip 2500mCg/250mlNS 250 ML IV SCH (20:16)
[2020-04-25] MEDS: ATORVASTATIN 20 MG TAB PO SCH (21:11)
[2020-04-25] MEDS: PROPOFOL 100 ML IV SCH (21:28)
--- NOTE | 2020-04-25 22:30 | NUR ---
Patient transferred to ICU bed 108 via ACLS and hospital protocol. Patient tolerated transfer well with no s/s of discomfort or distress.
[2020-04-26] VITALS (95 sets, daily range): BP systolic 90–179; BP diastolic 46–87
--- NOTE | 2020-04-26 01:00 | NUR ---
Bed bath: Patient was given a bed bath and linen change was provided.
[2020-04-26 01:15] LABS: Potassium 4.3 mmol/L (3.5-5.1)
[2020-04-26 01:37] LABS: Albumin 2.6 g/dL (3.4-5.0); Bilirubin, Total 0.4 mg/dL (0.2-1.0); Calcium 8.8 mg/dL (8.5-10.1); Total Protein 7.8 g/dL (6.4-8.2)
[2020-04-26] MEDS: PIPERACILLIN-TAZOB 3.375GM 100 ML IV SCH ×5 (05:41→23:58)
[2020-04-26] MEDS: InsuLIN REG 1unit/0.01ml Soln (100units/ml) SC SCH ×4 (06:07→22:00)
[2020-04-26] MEDS: ACCU-CHEK COMFORT CURVE STRIP VI SCH ×4 (06:07→22:00)
[2020-04-26 08:17] LABS: Basophils # (auto) 0 10 ^3/uL (0-0.2); Basophils % (auto) 0.4 % (0.0-2.0); Eosinophils # (auto) 0 10 ^3/uL (0-0.8); Eosinophils % (auto) 0.2 % (0.0-7.0); Hematocrit 37.2 % (36.0-46.0); Hemoglobin 12.6 g/dL (12.2-16.2); Lymphocytes % (auto) 10.8 % (10.0-50.0); Mean Corpuscular Hemoglobin 27.8 pg (28.0-32.0); Mean Corpuscular Hgb Conc. 33.7 g/dL (32.0-36.0); Mean Corpuscular Volume 82.4 fL (80.0-100.0); Monocytes # (auto) 0.5 10 ^3/uL (0-1.3); Monocytes % (auto) 5.4 % (0.0-12.0); Neutrophils # (auto) 7.8 10 ^3/uL (1.6-8.6); Neutrophils % (auto) 83.2 % (37.0-80.0); Platelet Count (auto) 359 10^3/uL (140-450); Red Blood Cells 4.52 10^6/uL (4.0-5.20); Red Cell Distribution Width 14.7 % (11.8-14.3); White Blood Cell 9.4 10^3/uL (4.4-10.8)
[2020-04-26] MEDS: PANTOPRAZOLE 40 MG/10 ML VIAL INJ IV SCH (09:59)
[2020-04-26] MEDS: DexAMETHasone SOD PHOS 4 MG/1ML SDV INJ IV SCH ×2 (09:59→22:00)
[2020-04-26] MEDS: FUROSEMIDE 40 MG/4 ML VIAL IV SCH (10:00)
[2020-04-26] MEDS: CHOLECALCIFEROL (VITD3) 1,000UNIT=25mCg TAB PO SCH (10:00)
[2020-04-26] MEDS: ZINC SULFATE 220mg CAP or TAB PO SCH (10:00)
[2020-04-26] MEDS: ASCORBIC ACID 1,000 MG TAB PO SCH (10:00)
[2020-04-26] MEDS ORDERED: ENOXAPARIN SOD 80 MG/0.8ML SYRINGE SC SCH (10:00)
[2020-04-26] MEDS: METHADONE HCL 10 MG TAB PO SCH (10:00)
--- NOTE | 2020-04-26 11:20 | NUR ---
PT. HIGH PRESSURE ALARM ON VENT CONTINUOUSLY, COUGHING CONTINUOUSLY. PT. HAD LG. AMOUNT THIN FROTHY CREAMY SPUTUM VIA ET. RT AT BS SUCTIONING PT. ON FIO2-50% ON VENT. O2 SATS UPPER 90'S. SUCTIONING ORALLY LG. AMOUNT SECRETIONS CLEAR/WHITE. LUNGS COARSE SHAW. INSPIRATORY AND EXPIRATORY.
[2020-04-26] MEDS: MIDAZOLAM DRIP 50 mg/50mL 50 ML IV SCH ×2 (13:25→16:55)
--- NOTE | 2020-04-26 14:33 | NUR ---
DR. HENDRICKSON Provider/Hospitalist at bedside. GAVE UPDATE ON PT. NEW ORDERS RECEIVED.
[2020-04-26] MEDS ORDERED: FLUCONAZOLE 200MG/100ML 100 ML IV ONE (15:30)
[2020-04-26] MEDS ORDERED: Jevity 1.2 Cal/Fiber 1 Liter GT SCH (15:30)
--- NOTE | 2020-04-26 16:50 | NUR ---
DR. PATEL Provider/Hospitalist at bedside. NEW ORDERS RECEIVED.
[2020-04-26] MEDS: fentaNYL Drip 2500mCg/250mlNS 250 ML IV SCH (16:54)
--- NOTE | 2020-04-26 17:00 | NUR ---
SBP 90'S-100'S. PT. REMAINS OFF LEVOPHED GTT.
[2020-04-26] MEDS: DexMEDEtomidine 400 MCG in D5W 5% 96 ML IV SCH (17:17)
[2020-04-26 17:35] LABS: Urine Bacteria FEW /hpf (None Seen); Urine Blood Negative /uL (Negative); Urine WBC 1 /hpf (0 - 5)
--- NOTE | 2020-04-26 19:00 | NUR ---
Opening shift note: Primary RN Andrea received report on patient. Pt currently intubated ETT 8.0/ 24cm @LL, VENT settings: AC 16, TV 500, FIO2 40%, PEEP 8, O2 Saturation 98%. Bilateral lung sounds diminished. Right upper midline infusing Versed @ 10 and Fentanyl @ 125. NGT left nare clamped, placement confirmed. Rose catheter draining via gravity with yellow urine. Safety precautions in place. Will continue to monitor. Patient on isolation for COVID-19.
--- NOTE | 2020-04-26 21:00 | NUR ---
Tube feeding: RN rechecked placement of NGT and placement was confirmed. Patient had no residuals at this time. RN started tube feedings at 10mL/hr with a goal of 30mL/hr. RN will continue to monitor patient for tube feeding toleration and advance feeding rate accordingly.
[2020-04-26] MEDS: PROPOFOL 100 ML IV SCH (21:28)
[2020-04-26] MEDS: ENOXAPARIN SOD 80 MG/0.8ML SYRINGE SC SCH (22:00)
[2020-04-26] MEDS: ATORVASTATIN 20 MG TAB PO SCH (22:00)
[2020-04-27] VITALS (96 sets, daily range): BP systolic 98–165; BP diastolic 51–82
--- NOTE | 2020-04-27 01:00 | NUR ---
Feeding: Feeding increased to 20mL/hr. Patient appears to be tolerating feeding well at this time. No residuals noted. RN will continue to monitor and assess patient.
--- NOTE | 2020-04-27 03:00 | NUR ---
Bed bath: Patient given bed bath and linen change provided. Opti-foam to sacrum changed. Skin remains intact at this time.
--- NOTE | 2020-04-27 03:37 | NUR ---
Feeding: Feeding increased to 30mL/hr. Patient appears to be tolerating feeding well at this time. RN will continue to monitor and assess patient.
[2020-04-27] MEDS: DexMEDEtomidine 400 MCG in D5W 5% 96 ML IV SCH (04:00)
[2020-04-27 05:00] LABS: Anion Gap 7 (5-15); BUN/Creatinine Ratio 33.6; Blood Urea Nitrogen 43 mg/dL (7-18); Calcium 8.3 mg/dL (8.5-10.1); Carbon Dioxide 24 mmol/L (21-32); Chloride 99 mmol/L (98-107); GFR African American 54 mL/min; GFR Non-African American 44 mL/min; Glucose 139 mg/dL (74-106); Potassium 4.3 mmol/L (3.5-5.1); Sodium 130 mmol/L (136-145)
[2020-04-27] MEDS: PIPERACILLIN-TAZOB 3.375GM 100 ML IV SCH ×3 (06:00→18:02)
[2020-04-27] MEDS: InsuLIN REG 1unit/0.01ml Soln (100units/ml) SC SCH ×4 (06:19→22:28)
[2020-04-27] MEDS: ACCU-CHEK COMFORT CURVE STRIP VI SCH ×4 (06:19→22:00)
[2020-04-27 07:15] LABS: Eosinophils # (auto) 0 10 ^3/uL (0-0.8); Eosinophils % (auto) 0.1 % (0.0-7.0); Lymphocytes # (auto) 0.9 10 ^3/uL (0.4-5.4); Mean Corpuscular Volume 81.4 fL (80.0-100.0); Monocytes # (auto) 0.3 10 ^3/uL (0-1.3); Nucleated Red Blood Cells % 0.1 %; Red Cell Distribution Width 14.9 % (11.8-14.3)
[2020-04-27 07:17] LABS: Basophils # (auto) 0.1 10 ^3/uL (0-0.2); Basophils % (auto) 1.4 % (0.0-2.0); Hematocrit 36.8 % (36.0-46.0); Lymphocytes % (auto) 10.2 % (10.0-50.0); Mean Corpuscular Hemoglobin 26.5 pg (28.0-32.0); Mean Corpuscular Hgb Conc. 32.5 g/dL (32.0-36.0); Monocytes % (auto) 3.6 % (0.0-12.0); Neutrophils # (auto) 7.6 10 ^3/uL (1.6-8.6); Neutrophils % (auto) 84.7 % (37.0-80.0); Platelet Count (auto) 391 10^3/uL (140-450); Red Blood Cells 4.53 10^6/uL (4.0-5.20)
[2020-04-27] MEDS: ASCORBIC ACID 1,000 MG TAB PO SCH (10:00)
[2020-04-27] MEDS: PANTOPRAZOLE 40 MG/10 ML VIAL INJ IV SCH (10:00)
[2020-04-27] MEDS: DexAMETHasone SOD PHOS 4 MG/1ML SDV INJ IV SCH ×2 (10:00→22:00)
[2020-04-27] MEDS: ZINC SULFATE 220mg CAP or TAB PO SCH (10:00)
[2020-04-27] MEDS: ENOXAPARIN SOD 80 MG/0.8ML SYRINGE SC SCH ×2 (10:00→22:00)
[2020-04-27] MEDS: FUROSEMIDE 40 MG/4 ML VIAL IV SCH (10:00)
[2020-04-27] MEDS: CHOLECALCIFEROL (VITD3) 1,000UNIT=25mCg TAB PO SCH (10:00)
[2020-04-27] MEDS: FLUCONAZOLE 200MG/100ML 100 ML IV SCH (10:00)
--- NOTE | 2020-04-27 12:44 | NUR ---
SPOKE TO DAUGHTER CANDY. UPDATED HER ON PATIENTS CURRENT CONDITION AND ANSWERED ALL QUESTIONS AT THIS TIME.
--- NOTE | 2020-04-27 15:58 | NUR ---
assessment Patient is a 64 year old female who is on a vent in ICU. Patient is Covid positive. Per patients daughter Esperanza prior to admission patient lived home with family and needed assistance. Patient has a fww, wheelchair and oxygen at home. Patient uses Dr Stacie moody for PCP. Esperanza informed me patient was at the methadone clinic and the clinic called 911. Patient was admitted and placed on a vent. Per Esperanza patients son Alexei is her [facility] caregiver. Patient has been on methadone for 30 years. I informed Esperanza I will continue to monitor and follow up as appropriate. I informed Esperanza patients post discharge needs to be determined after extubation and prior to discharge. Esperanza verbalized understanding. Addendum: 04/27/20 at 1603 by Lissette EM Amended: Links added.
--- NOTE | 2020-04-27 19:00 | NUR ---
Patient was noted to be attempting to climb out of bed and attempting to pull out ET tube, patient was not cooperating with RN to attempt to relax, Precedex was already running. Sedations had to be increased to help patient relax and prevent harm to herself.
--- NOTE | 2020-04-27 19:00 | NUR ---
Opening shift note: Primary RN Frank received report on patient. Pt currently intubated ETT 8.0/ 24cm @LL, VENT settings: AC 16, TV 500, FIO2 30%, PEEP 5, O2 Saturation 96%. Bilateral lung sounds diminished. Right upper midline infusing Versed @ 14 and Fentanyl @ 150 Precedex @ 0.7. NGT left nare clamped, placement confirmed. Rose catheter draining via gravity with yellow urine. Safety precautions in place. Will continue to monitor. Patient on isolation for COVID-19. Addendum: 04/27/20 at 2211 by FRANK MARTINEZ RN RN Versed @ 7 and Fentanyl @ 100 Precedex @ 0.4
[2020-04-27] MEDS: fentaNYL Drip 2500mCg/250mlNS 250 ML IV SCH (20:16)
[2020-04-27] MEDS: PROPOFOL 100 ML IV SCH (21:28)
[2020-04-27] MEDS: ATORVASTATIN 20 MG TAB PO SCH (22:00)
[2020-04-27] MEDS: DOXYCYCLINE 100 MG TAB/CAP PO SCH (22:00)
--- NOTE | 2020-04-27 22:44 | NUR ---
IV infiltration: IV to left upper arm noted to be infiltrated. IV discontinued. Catheter fully intact. Patient tolerated intervention well.
[2020-04-28] VITALS (89 sets, daily range): BP systolic 89–261; BP diastolic 33–123
[2020-04-28 04:58] LABS: Potassium 4.2 mmol/L (3.5-5.1)
[2020-04-28 05:02] LABS: BUN/Creatinine Ratio 38.5
[2020-04-28] MEDS: PIPERACILLIN-TAZOB 3.375GM 100 ML IV SCH ×5 (06:00→23:41)
[2020-04-28] MEDS: InsuLIN REG 1unit/0.01ml Soln (100units/ml) SC SCH ×4 (06:11→21:35)
[2020-04-28] MEDS: ACCU-CHEK COMFORT CURVE STRIP VI SCH ×4 (06:15→21:35)
[2020-04-28 06:48] LABS: Basophils # (auto) 0 10 ^3/uL (0-0.2); Eosinophils # (auto) 0 10 ^3/uL (0-0.8); Hemoglobin 14.3 g/dL (12.2-16.2); Monocytes # (auto) 0.4 10 ^3/uL (0-1.3); Neutrophils # (auto) 6.3 10 ^3/uL (1.6-8.6); Nucleated Red Blood Cells % 0.1 %; White Blood Cell 7.9 10^3/uL (4.4-10.8)
[2020-04-28 06:51] LABS: Basophils % (auto) 0.1 % (0.0-2.0); Eosinophils % (auto) 0.2 % (0.0-7.0); Hematocrit 43.7 % (36.0-46.0); Lymphocytes # (auto) 1.2 10 ^3/uL (0.4-5.4); Mean Corpuscular Hemoglobin 27.1 pg (28.0-32.0); Mean Corpuscular Hgb Conc. 32.7 g/dL (32.0-36.0); Monocytes % (auto) 5.5 % (0.0-12.0); Neutrophils % (auto) 79.2 % (37.0-80.0); Platelet Count (auto) 450 10^3/uL (140-450); Red Blood Cells 5.27 10^6/uL (4.0-5.20); Red Cell Distribution Width 15.1 % (11.8-14.3)
--- NOTE | 2020-04-28 08:24 | NUR ---
AM ASSESSMENT DONE PT OPENS EYES WITHDRAWS TO PAIN, DOES NOT FOLLOW COMMANDS. CURRENTLY ON FENTANYL AT 50 PHILLIP/HR AND PRECEDEX AT 0.5 MCG/KG/HR TO DECREASE ANXIETY. PT ORN, AND TRIES TO PULL ON LINES, PT WEARING MITTENS ON BOTH ARMS TO PREVENT SELF EXTUBATION. SKIN IS INTACT. PT ONLY HAS ONE MIDLINE ON MAIKEL. PT IS A DIFFICULT STICK, MULTIPLE RN'S HAVE ATTEMPTED STARTING IV'S UNSUCCESSFULLY. PT COULD BENEFIT FROM A PICC LINE. ORAL CARE PROVIDED AT THIS TIME AND REPOSITIONED FORT COMFORT WITH PARAMEDICS ASSISTANCE.
--- NOTE | 2020-04-28 08:25 | NUR ---
CPAP TRIAL INITIATED PT IS AWAKE. INITIATED CPAP TRIAL ORDERED. PT TOLERATING WELL AT THIS TIME. HR 89, RR 25, SPO2 95%. RN AT BEDSIDE, AWARE OF CHANGES. WILL CONTINUE TO MONITOR.
--- NOTE | 2020-04-28 09:00 | NUR ---
PAGED DR. HENDRICKSON TO REQUEST A PICC LINE FOR PT. PT ONLY HAS ONE IV AND MEDS ARE NOT COMPATIBLE.
--- NOTE | 2020-04-28 09:10 | NUR ---
DR. HENDRICKSON CALLED BACK. I NOTIFIED HER OF PICC LINE NECESSITY. ORDERED PICC LINE.
--- NOTE | 2020-04-28 09:15 | NUR ---
HTN HTN OCCURRED DURING CPAP TRIAL, PT BECAME ANXIOUS TACHYCARDIC AND HYPERTENSIVE, ONCE , PT WAS PLACED BACK TO AC MODE AND PRECEDEX WAS INCREASED BACK TO 0.7 MCG/KG/HR THEN SBP CAME BACK TP THE LOW 90'S TO LOW 100'S. NO BP MEDS WERE GIVEN.
--- NOTE | 2020-04-28 09:49 | NUR ---
OBTAINED CONSENT FROM PT'S DAUGHTER CANDY TAYLOR TO INSERT A PICC LINE ON PT. CONSENT VERIFIED BY 2ND RN Geoffrey GRAY.
--- NOTE | 2020-04-28 09:50 | NUR ---
CALLED DR DAVILA TO REPORT ABG RESULTS AND WEANING PARAMETERS. NO ANSWER, LEFT MESSAGE. AWAITING CALL BACK
--- NOTE | 2020-04-28 10:15 | NUR ---
RECEIVED EXTUBATION ORDERS FROM DR DAVILA. WILL CARRY OUT
[2020-04-28] MEDS: DexAMETHasone SOD PHOS 4 MG/1ML SDV INJ IV SCH ×2 (10:38→21:34)
[2020-04-28] MEDS: FLUCONAZOLE 200MG/100ML 100 ML IV SCH (10:39)
[2020-04-28] MEDS: PANTOPRAZOLE 40 MG/10 ML VIAL INJ IV SCH (10:40)
[2020-04-28] MEDS: DOXYCYCLINE 100 MG TAB/CAP PO SCH ×2 (10:40→21:35)
[2020-04-28] MEDS: ZINC SULFATE 220mg CAP or TAB PO SCH (10:40)
[2020-04-28] MEDS: ASCORBIC ACID 1,000 MG TAB PO SCH (10:41)
[2020-04-28] MEDS: CHOLECALCIFEROL (VITD3) 1,000UNIT=25mCg TAB PO SCH (10:42)
[2020-04-28] MEDS: ENOXAPARIN SOD 80 MG/0.8ML SYRINGE SC SCH ×2 (10:42→21:35)
--- NOTE | 2020-04-28 10:45 | NUR ---
DR. HENDRICKSON ROUNDING ON PT. UPDATED ON PT'S CONDITION, ON PLAN ON EXTUBATING PT AT 1100 AFTER ADMINISTERING NGT (PO) MEDS. GRADE AND CENTER MARKER ALREADY GAVE ORDERS TO EXTUBATE PT ONCE PT IS FOLLOWING COMMANDS. SIGNED ORDERS FOR PT TO HAVE A PICC LINE INSERTED BY PICC LINE RN.
[2020-04-28 10:55] LABS: INR 1.06 (0.9-1.15); Partial Thromboplastin Time 26.2 sec (23.64-32.05)
--- NOTE | 2020-04-28 11:15 | NUR ---
EXTUBATION HELD, CPAP TRIAL FAILED Pt diaphoretic with increased WOB and accessory muscle use. HR 121, RR 30, O2 desat to 88%, and BP 190/70. Increased FIO2 to 65%. Pt not extubated at this time. Ended cpap trial and placed back on AC mode with previous ordered settings. RN increasing sedation. Will continue to monitor.
[2020-04-28] MEDS ORDERED: amLODIPine BESYLATE 5 MG TAB PO ONE (12:30)
[2020-04-28] MEDS ORDERED: cloNIDine HCL 0.1 MG TAB PO ONE (12:30)
--- NOTE | 2020-04-28 12:41 | NUR ---
Nutrition Followup Notes Wt: 79.0 kg Pt intubated sedated currently NPO. per RN no order of any feedings as pt for possible CPAP. Est energy needs 4243-8489 kcal (25-27 kcal/kg BW 72kg) Est protein needs 43-54g (0.6-0.75g/kg BW 72kg r/t elevated RFTs) will reassess prn. LABS: BUN 47 H, CREAT 1.22 H, GLU 135 H, ALB 2.6 L. GI: Pt has no BM reported per RN doc. BS: 13 mod risk Refer to wound assessment report for full details. PES:Altered nutrition related labs r/t current medical condition aeb elevated RFTs, hypoalb Comments 1) Consider EN support with Glucerna @ 60 gm/hr per MD approval if pt fails CPAP 2) advance diet as medically feasible. 3) refer pt to [facility] on DC 4) continue current plan of care. F/u high 2-3 days
--- NOTE | 2020-04-28 13:08 | NUR ---
PICC LINE RN AT BEDSIDE TO INSERT PICC LINE, PT ONLY HAS ONE MIDLINE.
[2020-04-28] MEDS: MIDAZOLAM DRIP 50 mg/50mL 50 ML IV SCH (13:25)
[2020-04-28] MEDS ORDERED: LIDOCAINE 1% (LOCAL ANESTH.) PF 5ml SDV ID ONE (14:00)
[2020-04-28] MEDS ORDERED: FLUCONAZOLE 200MG/100ML 200 ML IV SCH (14:00)
--- NOTE | 2020-04-28 14:11 | NUR ---
PICC line placement Patient significant other educated on need for PICC line placement. All risks and benefits explained and all questions and concerns addressed prior to procedure. Noted past medical history and allergies with no contraindications. INR and Plt counts within acceptable range. 5 fr PICC line inserted via right brachial vein using [employer] US and Tip Location System. Sterile technique with maximum barrier precautions utilized. Blood return obtained from each of the 3 lumens and each flushed easily with NS using proper technique. PICC secured with Stat-lock; biodisc and occlusive dressing applied. Stat portable chest x-ray obtained for PICC tip placement. *Baseline Arm Circumference 29 cm. Internal length 34 cm. External length 0 cm. PICC lot # [id number]
--- NOTE | 2020-04-28 14:12 | NUR ---
Okay to use PICC line Xray completed and reviewed. Okay to use PICC line. Nancy THORNE notified. Aware that midline should be removed.
--- NOTE | 2020-04-28 14:25 | NUR ---
TITRATED FIO2 DOWN TO 35%, SPO2 MAINTAINING 97%. PT TOLERATING VENT BETTER NOW. RESTING COMFORTABLY IN BED, NO S/S OF DISTRESS.
--- NOTE | 2020-04-28 16:45 | NUR ---
DR DAVILA IN THE UNIT, REQUESTING PT TO TRY CPAP TRIAL AGAIN. INITIATED CPAP TRIAL, PT TOLERATING. PT IS MORE ALERT, NOW FOLLOWING COMMANDS. NO S/S OF DISTRESS. PT REACHING HAND UP TO TUBE, MITTENS IN PLACE.
--- NOTE | 2020-04-28 16:50 | NUR ---
DR DAVILA AT BEDSIDE TO SEE PT ON CPAP TRIAL. ORDERS RECEIVED FOR EXTUBATION. RN AWARE.
--- NOTE | 2020-04-28 17:00 | NUR ---
PT EXTUBATED TO 2LPM NASAL CANNULA. HR 77, RR 24, SPO2 98%. PT TOLERATED WELL, REPOSITIONED IN BED. RESTING COMFORTABLY, NO S/S OF DISTRESS. RN AWARE.
[2020-04-28] MEDS: DexMEDEtomidine 400 MCG in D5W 5% 96 ML IV SCH (17:19)
--- NOTE | 2020-04-28 17:55 | NUR ---
POST EXTUBATION PT REMAINS STABLE SPO2 99 % 0N 4 L NC. PT VSS. RR 30. PT REMAINS ON AIRBORNE ISOLATION FOR COVID 19 ALL CARE REMAINS CLUSTER.
[2020-04-28] MEDS ORDERED: FUROSEMIDE 40 MG/4 ML VIAL IV ONE (18:30)
--- NOTE | 2020-04-28 18:30 | NUR ---
PT BECAME S.O.B LUNG SOUNDS COARSE WITH CRACKLES AND RHONCHI PT WAS VERY ANXIOUS, NOT WANTING TO BE LEFT ALONE. MEDICATED WITH LASIX AT THIS TIME AND REQUESTED FOR ADDITIONAL MEDICATION, MED NEBS. REFRIGERATING ENGINEER HEAD STILL IN ICU SEEN OTHER PT'S AND AVAILABLE TO GIVE ORDERS SEE MD ORDERS.
[2020-04-28] MEDS ORDERED: FUROSEMIDE 40 MG/4 ML VIAL ONE (18:32)
[2020-04-28] MEDS: MORPHINE SULF INJ 2 MG/ML SYRINGE 1ML IV PRN ×2 (19:00→23:00)
[2020-04-28] MEDS ORDERED: LORazepam 2MG/ML-1ML VIAL IV ONE ×2 (19:00→19:20)
[2020-04-28] MEDS: METHADONE HCL 10 MG TAB PO SCH (19:00)
--- NOTE | 2020-04-28 19:00 | NUR ---
PT GOING THROUGH WITHDRAWALS, PT VERY ANXIOUS SBP IN THE 200'S AND PT DOES NOT WANT TO BE LEFT ALONE. PT IS GOING TO BE PLACED ON BIPAP PER DR. DAVILA AND ALSO GOING TO BE MEDICATED WITH ATIVAN 2MG AND MORPHINE 2 MG. PT TAKES METHADONE WHICH WAS ALSO ORDERED FOR PT TO HELP HER COPE WITH WITHDRAWALS. REPORT GIVEN TO FADUMO MARIE.
--- NOTE | 2020-04-28 19:00 | NUR ---
1900 scheduled methadone held due to patient currently on Bi-pap and to drowsy to swallow any PO medications at this time. Patient at risk for aspiration if she attempts to swallow pills at this time.
--- NOTE | 2020-04-28 19:00 | NUR ---
Opening shift note: RN assumed care of patient. Patient medicated with PRN Ativan and Morphine. Patient currently on Bi-pap saturating at 96%. RN will continue to monitor and assess patient.
[2020-04-28] MEDS ORDERED: MORPHINE SULF INJ 2 MG/ML SYRINGE 1ML ONE (19:01)
--- NOTE | 2020-04-28 19:45 | NUR ---
Patient was noted to remove her Bi-pap mask and currently saturating 96%. RT was already in patients room and placed patient back on Nasal Cannula d/t patient refusing to wear Bi-pap. Patient continues to saturate at 96%. RN will continue to monitor and assess patient.
[2020-04-28] MEDS: fentaNYL Drip 2500mCg/250mlNS 250 ML IV SCH (19:58)
[2020-04-28] MEDS: PROPOFOL 100 ML IV SCH (19:58)
[2020-04-28] MEDS: ATORVASTATIN 20 MG TAB PO SCH (21:35)
[2020-04-28] MEDS: SODIUM CHLOR 0.9% PF (SALINE LOCK) 10ML VIAL/SYR IV SCH (21:35)
[2020-04-28] MEDS: IPRATROPIUM BROM 0.5 MG/2.5ML INH SOL NEB SCH (22:00)
[2020-04-28] MEDS ORDERED: FLUCONAZOLE 200MG/100ML 100 ML IV SCH (22:00)
[2020-04-28] MEDS: ALBUTEROL SULF 2.5 MG/0.5ML(0.5%) NEB SOLN NEB SCH (22:00)
[2020-04-29] VITALS (36 sets, daily range): BP systolic 113–200; BP diastolic 69–128
--- NOTE | 2020-04-29 | NUR ---
Mittens: Patient was noted to remove her gown and remove her nasal cannula and appeared to be attempting to pull at her IV site and marroquin. RN placed patient on mittens to prevent self harm.
[2020-04-29] MEDS: InsuLIN REG 1unit/0.01ml Soln (100units/ml) SC SCH ×4 (05:47→21:11)
[2020-04-29] MEDS: ACCU-CHEK COMFORT CURVE STRIP VI SCH ×4 (05:48→21:10)
[2020-04-29] MEDS: PIPERACILLIN-TAZOB 3.375GM 100 ML IV SCH (05:50)
[2020-04-29] MEDS: IPRATROPIUM BROM 0.5 MG/2.5ML INH SOL NEB SCH (07:22)
[2020-04-29] MEDS: ALBUTEROL SULF 2.5 MG/0.5ML(0.5%) NEB SOLN NEB SCH (07:22)
--- NOTE | 2020-04-29 08:00 | NUR ---
AM ASSESSMENT COMPLETED PT AWAKE ALERT ORIENTED TO SELF AND SITUATION, DISORIENTED TO TIME. PT STILL TRYING TO GET OUT OF BED. RE ORIENTED TO TIME. PT SEEKING MORE PAIN MEDS AND ANTI ANXIETY MEDS. EDUCATED ON POC, PT VERBALIZED UNDERSTANDING.
--- NOTE | 2020-04-29 09:10 | NUR ---
PAGED Yahaira BURGESS TO SEE IF PT CAN BE DOWNGRADED TO TELEMETRY STATUS WITH A SITTER. PT DOING WELL ON 4 L NC. PT JUST DOES NOT WANT TO BE LEFT ALONE. SHE ALSO NEEDS A DIET. SHE IS TOLERATING PO FLUIDS WITHOUT ANY DIFFICULTY.
[2020-04-29] MEDS: DOXYCYCLINE 100 MG TAB/CAP PO SCH ×2 (09:49→21:10)
[2020-04-29] MEDS: ASCORBIC ACID 1,000 MG TAB PO SCH (09:49)
[2020-04-29] MEDS: CHOLECALCIFEROL (VITD3) 1,000UNIT=25mCg TAB PO SCH (09:49)
[2020-04-29] MEDS: METHADONE HCL 10 MG TAB PO SCH (09:50)
[2020-04-29] MEDS: amLODIPine BESYLATE 5 MG TAB PO SCH (09:52)
[2020-04-29] MEDS: PANTOPRAZOLE 40 MG/10 ML VIAL INJ IV SCH (09:52)
[2020-04-29] MEDS: DexAMETHasone SOD PHOS 4 MG/1ML SDV INJ IV SCH ×2 (09:53→21:09)
[2020-04-29] MEDS: SODIUM CHLOR 0.9% PF (SALINE LOCK) 10ML VIAL/SYR IV SCH ×2 (09:53→21:10)
[2020-04-29] MEDS: ENOXAPARIN SOD 80 MG/0.8ML SYRINGE SC SCH ×2 (09:53→21:10)
[2020-04-29] MEDS: ZINC SULFATE 220mg CAP or TAB PO SCH (09:53)
[2020-04-29] MEDS: PIPERACILLIN-TAZOB 2.25GM 50 ML IV SCH ×3 (12:22→23:50)
--- NOTE | 2020-04-29 12:40 | NUR ---
TRANSFERRED TO [facility] VIA BED ON 5 L NC ACCOMPANIED BY SITTER, HOUSEKEEPING AND SECURITY. PT TOLERATED TRANSFER WELL.
[2020-04-29] MEDS: ALBUTEROL SULF HFA 90MCG INH 200DOSE IN SCH ×2 (14:00→21:09)
[2020-04-29] MEDS ORDERED: FLUCONAZOLE 100 MG TAB PO ONE (14:15)
--- NOTE | 2020-04-29 19:20 | NUR ---
Opening Shift Note Patient AOx4, sitting in chair beside bed. Patient w/ no S/S of distress or SOB, no pain noted at this time. Patient bed locked in lowest position, call light within reach, and sitter at bedside. Patient has a slight productive cough. Will continue to monitor.
[2020-04-29] MEDS: ATORVASTATIN 20 MG TAB PO SCH (21:10)
[2020-04-30 05:00] VITALS: BP 139/58
[2020-04-30] MEDS: PIPERACILLIN-TAZOB 2.25GM 50 ML IV SCH (06:12)
[2020-04-30] MEDS: ACCU-CHEK COMFORT CURVE STRIP VI SCH ×4 (06:13→22:00)
[2020-04-30] MEDS: InsuLIN REG 1unit/0.01ml Soln (100units/ml) SC SCH ×4 (06:14→22:00)
[2020-04-30 07:09] LABS: Calcium 9.4 mg/dL (8.5-10.1); Potassium 3.4 mmol/L (3.5-5.1)
[2020-04-30 07:11] LABS: BUN/Creatinine Ratio 34.2
[2020-04-30] MEDS: ALBUTEROL SULF HFA 90MCG INH 200DOSE IN SCH ×3 (07:29→22:00)
[2020-04-30 09:00] VITALS: BP 117/75
[2020-04-30] MEDS: amLODIPine BESYLATE 5 MG TAB PO SCH (10:00)
[2020-04-30] MEDS: SODIUM CHLOR 0.9% PF (SALINE LOCK) 10ML VIAL/SYR IV SCH ×2 (10:00→22:00)
[2020-04-30] MEDS: PANTOPRAZOLE 40 MG/10 ML VIAL INJ IV SCH (10:56)
[2020-04-30] MEDS: DexAMETHasone SOD PHOS 4 MG/1ML SDV INJ IV SCH ×2 (10:56→22:31)
[2020-04-30] MEDS: ZINC SULFATE 220mg CAP or TAB PO SCH (10:56)
[2020-04-30] MEDS: FLUCONAZOLE 100 MG TAB PO SCH (10:57)
[2020-04-30] MEDS: DOXYCYCLINE 100 MG TAB/CAP PO SCH ×2 (10:59→22:32)
[2020-04-30] MEDS: CHOLECALCIFEROL (VITD3) 1,000UNIT=25mCg TAB PO SCH (10:59)
[2020-04-30] MEDS: ENOXAPARIN SOD 80 MG/0.8ML SYRINGE SC SCH (10:59)
[2020-04-30] MEDS: ASCORBIC ACID 1,000 MG TAB PO SCH (10:59)
[2020-04-30] MEDS: METHADONE HCL 10 MG TAB PO SCH (11:47)
[2020-04-30 13:00] VITALS: BP 126/76
--- NOTE | 2020-04-30 15:39 | NUR ---
Nutrition Followup Notes Wt: 71.2 kg Pt is positive for COVID. Pt is with a Mechanical Soft diet, appetite is good aeb 75% PO intake per RN doc. Will continue to monitor PO status, skin status, pertinent labs and weight trends. Will f/u in 3-5 days. Est energy needs 2873-9171 kcal (25-27 kcal/kg BW 72kg) Est protein needs 43-54g (0.6-0.75g/kg BW 72kg r/t elevated RFTs) will reassess prn. LABS: BUN 38 H, CREAT 1.11 H, GFR 52 L, GLU 116 H, ALB 2.6 L. GI: Pt has BM every 2-4 days as reported per RN doc. BS: 16 mod risk Refer to wound assessment report for full details. PES: Altered nutrition related labs r/t current medical condition aeb elevated RFTs, hypoalb Comments 1) Consider EN support with Glucerna @ 60 gm/hr per MD approval if pt fails CPAP 2) Advance diet as medically feasible. 3) Refer pt to [facility] on DC 4) Continue current plan of care. F/u high 2-3 days
--- NOTE | 2020-04-30 15:45 | NUR ---
Rose catheter discontinued Order to discontinue Rose catheter. Rose discontinued with clean technique following deflation of balloon. Patient tolerated well with no complaints of pain. Continue care.
[2020-04-30 17:00] VITALS: BP 112/77
[2020-04-30] MEDS ORDERED: POTASSIUM EFFERVESENT TAB 25 MEQ PO ONE (17:15)
[2020-04-30] MEDS: PIPERACILLIN-TAZOB 3.375GM 100 ML IV SCH ×2 (18:18→22:43)
--- NOTE | 2020-04-30 18:56 | NUR ---
Closing Note Patient is comfortably sitting at the edge of the bed, bed at lowest locked position and call light within reach. No s/s of distress/sob noted/stated. Sitter at bedside for safety. Will endorse care to NOC RN.
--- NOTE | 2020-04-30 19:15 | NUR ---
Opening Shift Note Assumed care of patient, awake and alert. No S/S of distress/SOB or pain. Bed in lowest locked position, side rails up x2, call light within reach, sitter at bedside. Instructed on POC and to call for assist PRN, will continue to monitor for changes Q1hr and PRN. Fall precautions in place per safety protocol.
[2020-04-30 20:03] VITALS: BP 112/77
--- NOTE | 2020-04-30 21:45 | NUR ---
Patient alert and oriented x4. Patient pleasantly confused but able to be reoriented PRN. Sitter discontinued per charge nurse Chelsea THORNE. Patient placed on bed alarm and educated again on use of call light, patient verbalized understanding. Will continue care.
[2020-04-30 22:00] VITALS: BP 124/73
[2020-04-30] MEDS: ATORVASTATIN 20 MG TAB PO SCH (22:32)
[2020-05-01] MEDS: MORPHINE SULF INJ 2 MG/ML SYRINGE 1ML IV PRN (00:27)
[2020-05-01 05:00] VITALS: BP 116/81
--- NOTE | 2020-05-01 05:45 | NUR ---
Patient denying bowel movement at this time. Offered to obtain order for stool softener or laxative from [facility] surgeon/general dermatologist hospitalist, patient refusing at this time. Patient educated on use of medication and importance of having bowel movement, patient continuing to refuse at this time. No s/s of abdominal distension or distress this time. Will continue to monitor.
[2020-05-01] MEDS: PIPERACILLIN-TAZOB 3.375GM 100 ML IV SCH ×3 (05:59→17:48)
[2020-05-01] MEDS: ACCU-CHEK COMFORT CURVE STRIP VI SCH ×3 (06:00→17:00)
[2020-05-01] MEDS: InsuLIN REG 1unit/0.01ml Soln (100units/ml) SC SCH ×3 (06:18→17:00)
--- NOTE | 2020-05-01 07:06 | NUR ---
Closing Note Patient sitting up in bed, awake and alert. No s/s of distress. Bed in lowest locked position, side rails up x2, call light within reach, bed alarm on. Care endorsed to dayshift RN.
--- NOTE | 2020-05-01 08:00 | NUR ---
AWAKE ALERT ORIENTED TIMES 4 DENIES ANY PAIN AT THIS TIME NO SIGNS OF DISTRESS. ASKING TO BE DISCHARGED TODAY. I INFORMED HER THAT I'M WAITING FOR DR HENDRICKSON. PATIENT VERBALIZED UNDERSTANDING.
[2020-05-01 09:00] VITALS: BP 132/80
[2020-05-01] MEDS: ALBUTEROL SULF HFA 90MCG INH 200DOSE IN SCH ×2 (09:10→15:50)
[2020-05-01] MEDS: ZINC SULFATE 220mg CAP or TAB PO SCH (09:44)
[2020-05-01] MEDS: SODIUM CHLOR 0.9% PF (SALINE LOCK) 10ML VIAL/SYR IV SCH (09:44)
[2020-05-01] MEDS: DexAMETHasone SOD PHOS 4 MG/1ML SDV INJ IV SCH (09:44)
[2020-05-01] MEDS: FLUCONAZOLE 100 MG TAB PO SCH (09:45)
[2020-05-01] MEDS: DOXYCYCLINE 100 MG TAB/CAP PO SCH (09:46)
[2020-05-01] MEDS: ASCORBIC ACID 1,000 MG TAB PO SCH (09:46)
[2020-05-01] MEDS: CHOLECALCIFEROL (VITD3) 1,000UNIT=25mCg TAB PO SCH (09:46)
[2020-05-01] MEDS: amLODIPine BESYLATE 5 MG TAB PO SCH (09:47)
[2020-05-01] MEDS ORDERED: ENOXAPARIN SOD 40 MG/0.4 ML SYRINGE SC SCH (10:00)
[2020-05-01] MEDS ORDERED: PANTOPRAZOLE 40 MG TAB PO SCH (10:00)
[2020-05-01] MEDS: METHADONE HCL 10 MG TAB PO SCH (10:06)
--- NOTE | 2020-05-01 12:00 | NUR ---
PICC LINE REMOVED BY PATIENT. SHE SAID SHE WAS BRUSHING HER HAIR AND IT GOT PULLED OUT BY ACCIDENT. DR HENDRICKSON INFORMED.
[2020-05-01 13:00] VITALS: BP 154/87
--- NOTE | 2020-05-01 16:08 | NUR ---
CALLED NEXT OF KIN LISTED DAUGHTER CANDY BUT NO ANSWER. I LEFT A MESSAGE. ATTEMPTING TO NOTIFY FAMILY OF DISCHARGE AND THAT PATIENT NEEDS TRANSPORTATION HOME. PATIENT STATES SHE ALREADY HAS HOME OXYGEN AND SHE USES IT AT [address] HENDRICKSON INFORMED HER TO CONTINUE THE SAME AT HOME. PATIENT VERBALIZED UNDERSTANDING.
[2020-05-01] MEDS ORDERED: DOX100T PO (16:13)
[2020-05-01] MEDS ORDERED: AML5T PO (16:13)
[2020-05-01] MEDS ORDERED: ATOR20TA50 PO (16:13)
--- NOTE | 2020-05-01 16:15 | NUR ---
SPOKE TO DAUGHTER CANDY. SHE SAID SHE WILL BRING PATIENTS OXYGEN TANK WHEN SHE PICKS HER UP.
[2020-05-01 17:00] VITALS: BP 150/79
[2020-05-01 17:08] VITALS: BP 132/80
--- NOTE | 2020-05-01 18:23 | NUR ---
Discharge instructions given as ordered. Encourage to follow up with PMD as instructed. All questions and concerns addressed. Patient verbalized understanding. Medication reconciliation form completed and copy given to patient. IV removed with catheter intact, pressure dressing applied. Telemetry unit returned to ICU. Patient taken to vehicle via wheelchair with all personal belongings, accompanied by staff . No distress noted at time of departure.
== END 2020-05-01 18:25 | disposition home or self-care (01) | DRG 720 ==
LOC: EDBD 16:47 → ER 16:47 → EDSEX 16:47 → TELE 16:48 → TELE-EAST 23:49 → ICU WEST 04-25 23:43 → TELE-E-ADS 04-29 13:20
PROVIDERS: ADMIT Nurse Practitioner; ATTEND Internal Medicine Nephrology
PROC: 0BH17EZ Insertion of Endotracheal Airway into Trachea, Via Natural or Artificial Opening (ICD-10-PCS; principal; 2020-04-25)
PROC: 5A12012 Performance of Cardiac Output, Single, Manual (ICD-10-PCS; 2020-04-25)
PROC: 5A1945Z Respiratory Ventilation, 24-96 Consecutive Hours (ICD-10-PCS; 2020-04-25)
PROC: 02HV33Z Insertion of Infusion Device into Superior Vena Cava, Percutaneous Approach (ICD-10-PCS; 2020-04-28)
PROC: B548ZZA Ultrasonography of Superior Vena Cava, Guidance (ICD-10-PCS; 2020-04-28)
DX: A41.89 Other specified sepsis (principal); U07.1 COVID-19; J12.89 Other viral pneumonia; J96.01 Acute respiratory failure with hypoxia; N17.0 Acute kidney failure with tubular necrosis; J81.0 Acute pulmonary edema; N18.3 Chronic kidney disease, stage 3 (moderate); J44.9 Chronic obstructive pulmonary disease, unspecified; R65.20 Severe sepsis without septic shock; E11.22 Type 2 diabetes mellitus with diabetic chronic kidney disease; I12.9 Hypertensive chronic kidney disease with stage 1 through stage 4 chronic kidney disease, or unspecified chronic kidney disease; F32.9 Major depressive disorder, single episode, unspecified; F19.10 Other psychoactive substance abuse, uncomplicated; K21.9 Gastro-esophageal reflux disease without esophagitis; E87.2 Acidosis; F17.210 Nicotine dependence, cigarettes, uncomplicated; E78.00 Pure hypercholesterolemia, unspecified; Z90.710 Acquired absence of both cervix and uterus; Z88.5 Allergy status to narcotic agent; Z83.3 Family history of diabetes mellitus; Z82.49 Family history of ischemic heart disease and other diseases of the circulatory system; Z79.899 Other long term (current) drug therapy; F11.20 Opioid dependence, uncomplicated
CPT/HCPCS: 36415; 36569; 36600; 71045; 80048; 80053; 81001; 82728; 82805; 82962; 83605; 83615; 83735; 84443; 84484; 85025; 85379; 85610; 85730; 86141; 87040; 87070; 87086; 87205; 87804; 87880; 93005; 93970; 94002; 94003; 94640; 94660; 96365; 96375; 99291; C9113; G0378; J0330; J0696; J1100; J1450; J1815; J2250; J2543; J2704; J3480; J3490; J7060

== ENCOUNTER 2021-01-18 17:17 | Emergency (ER) | payer MEDICARE, MEDICAID ==
[~2021-01-18] VITALS: Ht 160 cm; Wt 67.1 kg
[~2021-01-18 17:17] MED LIST changes: +AML5T PO; +ATOR20TA50 PO; +DOX100T PO
[2021-01-18] MEDS ORDERED: NALOXONE HCL 1MG/ML 2ML SYRINGE IV ONE (17:45)
[2021-01-18 18:52] LABS: Albumin 3.1 g/dL (3.4-5.0); Anion Gap 7 (5-15); Blood Urea Nitrogen 12 mg/dL (7-18); Calcium 8.6 mg/dL (8.5-10.1); Carbon Dioxide 26 mmol/L (21-32); Chloride 105 mmol/L (98-107); Glucose 91 mg/dL (74-106); Potassium 3.7 mmol/L (3.5-5.1); Sodium 138 mmol/L (136-145)
[2021-01-18 18:57] LABS: Alanine Aminotransferase 18 U/L (13-56); Alkaline Phosphatase 114 U/L (45-117); Aspartate Aminotransferase 21 U/L (15-37); BUN/Creatinine Ratio 13.5; Bilirubin, Total 0.2 mg/dL (0.2-1.0); GFR African American 82 mL/min; GFR Non-African American 67 mL/min; Total Protein 7.3 g/dL (6.4-8.2)
[2021-01-18 19:01] LABS: Basophils # (auto) 0.1 10 ^3/uL (0-0.2); Basophils % (auto) 0.6 % (0.0-2.0); Eosinophils # (auto) 0.3 10 ^3/uL (0-0.8); Eosinophils % (auto) 3.6 % (0.0-7.0); Hematocrit 37.9 % (36.0-46.0); Hemoglobin 12.4 g/dL (12.2-16.2); Lymphocytes # (auto) 1.9 10 ^3/uL (0.4-5.4); Mean Corpuscular Hemoglobin 27.9 pg (28.0-32.0); Mean Corpuscular Hgb Conc. 32.7 g/dL (32.0-36.0); Mean Corpuscular Volume 85.2 fL (80.0-100.0); Monocytes # (auto) 0.9 10 ^3/uL (0-1.3); Monocytes % (auto) 10.2 % (0.0-12.0); Neutrophils # (auto) 5.7 10 ^3/uL (1.6-8.6); Neutrophils % (auto) 64.6 % (37.0-80.0); Platelet Count (auto) 263 10^3/uL (140-450); Red Blood Cells 4.45 10^6/uL (4.0-5.20); Red Cell Distribution Width 15.3 % (11.8-14.3); White Blood Cell 8.8 10^3/uL (4.4-10.8)
[2021-01-18] MEDS ORDERED: SODIUM CHLORIDE 0.9% 500 ML IV ONE ×2 (21:00→21:30)
[2021-01-18 21:45] VITALS: BP 131/72
== END 2021-01-18 21:47 | disposition home or self-care (01) ==
LOC: ER 17:17 → EDBD 17:17 → ER 21:47
DX: S00.81XA Abrasion of other part of head, initial encounter (principal); R41.82 Altered mental status, unspecified; J44.9 Chronic obstructive pulmonary disease, unspecified; G89.29 Other chronic pain; E11.9 Type 2 diabetes mellitus without complications; K21.9 Gastro-esophageal reflux disease without esophagitis; E78.5 Hyperlipidemia, unspecified; I10 Essential (primary) hypertension; Z79.899 Other long term (current) drug therapy; Z88.5 Allergy status to narcotic agent; W18.09XA Striking against other object with subsequent fall, initial encounter; Y93.89 Activity, other specified; Y92.89 Other specified places as the place of occurrence of the external cause; Y99.8 Other external cause status
CPT/HCPCS: 36415; 70450; 80053; 80320; 82962; 84484; 85025; 93005; 99285; J2310

== ENCOUNTER 2021-03-24 11:16 | Inpatient (IN) | payer MEDICARE, MEDICAID ==
[2021-03-24] VITALS (22 sets, daily range): BP systolic 82–193; BP diastolic 42–111
[~2021-03-24] VITALS: Ht 157.5 cm; Wt 70.6 kg
[~2021-03-24 11:16] MED LIST changes: +VENL1TAB99 PO; -VENL75TA2 PO
[2021-03-24] MEDS ORDERED: CLINDAMYCIN 600MG IV 50 ML IV ONE (11:30)
[2021-03-24] MEDS ORDERED: methylPREDNISolone SOD SUCC 125 MG/2 ML VL IV ONE (11:30)
[2021-03-24 12:24] LABS: Basophils # (auto) 0.1 10 ^3/uL (0-0.2); Basophils % (auto) 0.8 % (0.0-2.0); Eosinophils # (auto) 0.4 10 ^3/uL (0-0.8); Eosinophils % (auto) 3.9 % (0.0-7.0); Hematocrit 37.1 % (36.0-46.0); Hemoglobin 12.3 g/dL (12.2-16.2); Lymphocytes # (auto) 1.9 10 ^3/uL (0.4-5.4); Mean Corpuscular Hemoglobin 28.1 pg (28.0-32.0); Mean Corpuscular Hgb Conc. 33.1 g/dL (32.0-36.0); Mean Corpuscular Volume 84.7 fL (80.0-100.0); Monocytes # (auto) 0.8 10 ^3/uL (0-1.3); Monocytes % (auto) 8.5 % (0.0-12.0); Neutrophils # (auto) 6.5 10 ^3/uL (1.6-8.6); Neutrophils % (auto) 66.8 % (37.0-80.0); Red Blood Cells 4.38 10^6/uL (4.0-5.20); Red Cell Distribution Width 15.8 % (11.8-14.3); White Blood Cell 9.7 10^3/uL (4.4-10.8)
[2021-03-24 12:42] LABS: Albumin 3.3 g/dL (3.4-5.0); Anion Gap 4 (5-15); Blood Urea Nitrogen 13 mg/dL (7-18); Calcium 9.1 mg/dL (8.5-10.1); Carbon Dioxide 34 mmol/L (21-32); Chloride 98 mmol/L (98-107); Glucose 96 mg/dL (74-106); Magnesium 2.3 mg/dL (1.6-2.6); Potassium 4.2 mmol/L (3.5-5.1); Sodium 136 mmol/L (136-145)
[2021-03-24 12:47] LABS: Alanine Aminotransferase 19 U/L (13-56); Alkaline Phosphatase 127 U/L (45-117); Aspartate Aminotransferase 18 U/L (15-37); BUN/Creatinine Ratio 18.1; Bilirubin, Total 0.2 mg/dL (0.2-1.0); GFR African American 104 mL/min; GFR Non-African American 86 mL/min; Total Protein 8.1 g/dL (6.4-8.2)
[2021-03-24] MEDS ORDERED: NITROGLYCERIN 0.4 MG SL TAB SL PRN (14:00)
[2021-03-24] MEDS ORDERED: levoFLOXacin 750MG 150 ML IV ONE (14:00)
[2021-03-24] MEDS ORDERED: hydrALAZINE HCL 20 MG/ML VL IV ONE (14:15)
[2021-03-24] MEDS ORDERED: IOHEXOL 300 MG/ML 100ML BOTTLE IJ ONE ×2 (14:20→14:28)
[2021-03-24] MEDS ORDERED: traMADol HCL 50 MG TAB PO PRN (14:45)
[2021-03-24] MEDS ORDERED: ALBUTEROL SULF 2.5 MG/0.5ML(0.5%) NEB SOLN NEB PRN (14:45)
[2021-03-24] MEDS ORDERED: LACTULOSE 20Gm/30ML SOLN PO PRN ×2 (14:45)
[2021-03-24] MEDS ORDERED: DEXTROSE (50%) 50ML SYRG IV PRN (14:45)
[2021-03-24] MEDS ORDERED: PROMETHAZINE HCL 25 MG/ML 1ML IV PRN (14:45)
[2021-03-24] MEDS ORDERED: methylPREDNISolone SOD SUCC 125 MG/2 ML VL ONE (15:02)
[2021-03-24] MEDS ORDERED: diphenhdrAMINE HCL 50 MG/1 ML VL ONE (15:02)
[2021-03-24] MEDS: MIDAZOLAM DRIP 50 mg/50mL 50 ML IV SCH (15:10)
[2021-03-24 15:36] LABS: Urine Bacteria NONE SEEN /hpf (None Seen); Urine Blood Negative /uL (Negative); Urine WBC 4 /hpf (0 - 5)
[2021-03-24] MEDS: methylPREDNISolone SOD SUCC 40 MG/ML VL IV SCH (15:39)
[2021-03-24] MEDS: SODIUM CHLORIDE 0.9% 1,000 ML IV SCH (15:57)
[2021-03-24] MEDS ORDERED: ETOMIDATE (2MG/ML) 20ML VIAL IV ONE (16:00)
[2021-03-24] MEDS ORDERED: SUCCINYLCHOLINE CHLORIDE 20 MG/ML 10ML VIAL IV ONE (16:00)
[2021-03-24] MEDS: NOREPINEPHRINE 8 MG/250ML KIT 250 ML IV SCH (16:25)
[2021-03-24] MEDS: InsuLIN REG 1unit/0.01ml Soln (100units/ml) SC SCH ×2 (17:50→22:05)
[2021-03-24] MEDS: ACCU-CHEK COMFORT CURVE STRIP VI SCH ×2 (17:50→22:09)
[2021-03-24] MEDS: IPRATROPIUM BROM 0.5 MG/2.5ML INH SOL NEB SCH (17:55)
[2021-03-24] MEDS: ALBUTEROL SULF 2.5 MG/0.5ML(0.5%) NEB SOLN NEB SCH (17:56)
[2021-03-24] MEDS: CLINDAMYCIN 600MG IV 50 ML IV SCH (21:48)
[2021-03-25] VITALS (103 sets, daily range): BP systolic 77–177; BP diastolic 41–98
[2021-03-25] MEDS: ALBUTEROL SULF 2.5 MG/0.5ML(0.5%) NEB SOLN NEB SCH ×4 (00:07→18:04)
[2021-03-25] MEDS: IPRATROPIUM BROM 0.5 MG/2.5ML INH SOL NEB SCH ×4 (00:07→18:04)
[2021-03-25] MEDS: SODIUM CHLORIDE 0.9% 1,000 ML IV SCH ×3 (01:12→16:58)
[2021-03-25] MEDS: methylPREDNISolone SOD SUCC 40 MG/ML VL IV SCH ×2 (02:25→14:29)
[2021-03-25 03:54] LABS: Basophils # (auto) 0 10 ^3/uL (0-0.2); Basophils % (auto) 0.4 % (0.0-2.0); Eosinophils # (auto) 0 10 ^3/uL (0-0.8); Hematocrit 33.3 % (36.0-46.0); Hemoglobin 11.4 g/dL (12.2-16.2); Lymphocytes # (auto) 0.6 10 ^3/uL (0.4-5.4); Lymphocytes % (auto) 9.6 % (10.0-50.0); Mean Corpuscular Hemoglobin 28.3 pg (28.0-32.0); Mean Corpuscular Hgb Conc. 34.1 g/dL (32.0-36.0); Mean Corpuscular Volume 82.9 fL (80.0-100.0); Monocytes # (auto) 0.1 10 ^3/uL (0-1.3); Monocytes % (auto) 1.9 % (0.0-12.0); Neutrophils # (auto) 5.8 10 ^3/uL (1.6-8.6); Neutrophils % (auto) 88.1 % (37.0-80.0); Nucleated Red Blood Cells % 0.1 %; Red Blood Cells 4.02 10^6/uL (4.0-5.20); Red Cell Distribution Width 15.8 % (11.8-14.3); White Blood Cell 6.6 10^3/uL (4.4-10.8)
[2021-03-25 04:08] LABS: Albumin 2.6 g/dL (3.4-5.0); Calcium 8.5 mg/dL (8.5-10.1); Potassium 4.4 mmol/L (3.5-5.1)
[2021-03-25 04:14] LABS: BUN/Creatinine Ratio 26.6; Bilirubin, Total 0.4 mg/dL (0.2-1.0); Total Protein 6.7 g/dL (6.4-8.2)
[2021-03-25] MEDS: hydrALAZINE HCL 20 MG/ML VL IV PRN ×2 (04:49→06:52)
[2021-03-25] MEDS: CLINDAMYCIN 600MG IV 50 ML IV SCH ×3 (06:16→22:30)
[2021-03-25] MEDS: InsuLIN REG 1unit/0.01ml Soln (100units/ml) SC SCH ×4 (06:17→22:30)
[2021-03-25] MEDS: ACCU-CHEK COMFORT CURVE STRIP VI SCH ×4 (06:17→22:30)
[2021-03-25] MEDS: MIDAZOLAM DRIP 50 mg/50mL 50 ML IV SCH ×3 (09:34→23:57)
[2021-03-25] MEDS: ENOXAPARIN SOD 40 MG/0.4 ML SYRINGE SC SCH (09:36)
[2021-03-25] MEDS: METHADONE HCL 10 MG TAB PO SCH (09:36)
[2021-03-25] MEDS ORDERED: levoFLOXacin 500MG 100 ML IV SCH (10:00)
[2021-03-25] MEDS: NOREPINEPHRINE 8 MG/250ML KIT 250 ML IV SCH ×2 (13:00→16:15)
[2021-03-25] MEDS ORDERED: fentaNYL Drip 2500mCg/250mlNS 250 ML IV ONE (22:19)
[2021-03-25] MEDS: fentaNYL Drip 2500mCg/250mlNS 250 ML IV SCH (22:30)
[2021-03-26] VITALS (98 sets, daily range): BP systolic 96–152; BP diastolic 45–83
[2021-03-26] MEDS: ALBUTEROL SULF 2.5 MG/0.5ML(0.5%) NEB SOLN NEB SCH ×4 (00:17→18:13)
[2021-03-26] MEDS: IPRATROPIUM BROM 0.5 MG/2.5ML INH SOL NEB SCH ×4 (00:17→18:13)
[2021-03-26] MEDS: methylPREDNISolone SOD SUCC 40 MG/ML VL IV SCH ×2 (03:00→13:58)
[2021-03-26] MEDS: MIDAZOLAM DRIP 50 mg/50mL 50 ML IV SCH (03:10)
[2021-03-26] MEDS: SODIUM CHLORIDE 0.9% 1,000 ML IV SCH (03:30)
[2021-03-26 04:00] LABS: Basophils # (auto) 0 10 ^3/uL (0-0.2); Basophils % (auto) 0.2 % (0.0-2.0); Eosinophils # (auto) 0 10 ^3/uL (0-0.8); Hematocrit 31.1 % (36.0-46.0); Hemoglobin 10.6 g/dL (12.2-16.2); Lymphocytes % (auto) 8.9 % (10.0-50.0); Mean Corpuscular Hemoglobin 28.1 pg (28.0-32.0); Mean Corpuscular Volume 82.7 fL (80.0-100.0); Monocytes # (auto) 0.9 10 ^3/uL (0-1.3); Monocytes % (auto) 7.9 % (0.0-12.0); Neutrophils # (auto) 9.6 10 ^3/uL (1.6-8.6); Red Blood Cells 3.77 10^6/uL (4.0-5.20); Red Cell Distribution Width 15.4 % (11.8-14.3); White Blood Cell 11.6 10^3/uL (4.4-10.8)
[2021-03-26 04:10] LABS: BUN/Creatinine Ratio 39.1; Calcium 7.9 mg/dL (8.5-10.1); Potassium 4.4 mmol/L (3.5-5.1)
[2021-03-26] MEDS: CLINDAMYCIN 600MG IV 50 ML IV SCH ×3 (06:00→21:25)
[2021-03-26] MEDS: ACCU-CHEK COMFORT CURVE STRIP VI SCH ×4 (06:37→22:00)
[2021-03-26] MEDS: InsuLIN REG 1unit/0.01ml Soln (100units/ml) SC SCH ×4 (06:38→22:00)
[2021-03-26] MEDS ORDERED: diphenhdrAMINE HCL 50 MG/1 ML VL IV ONE (09:15)
[2021-03-26] MEDS ORDERED: diphenhdrAMINE HCL 50 MG/1 ML VL ONE (09:25)
[2021-03-26] MEDS: METHADONE HCL 10 MG TAB PO SCH (09:45)
[2021-03-26] MEDS: ENOXAPARIN SOD 40 MG/0.4 ML SYRINGE SC SCH (09:46)
[2021-03-26] MEDS ORDERED: cefTRIAXone 1GM/50ML D5W 50 ML IV ONE (13:15)
[2021-03-26] MEDS: diphenhdrAMINE HCL 50 MG/1 ML VL IV SCH ×2 (13:58→21:25)
[2021-03-26] MEDS ORDERED: DOXYCYCLINE 100MG/250ML 250 ML IV SCH (14:15)
[2021-03-26] MEDS: NOREPINEPHRINE 8 MG/250ML KIT 250 ML IV SCH (16:15)
[2021-03-26] MEDS: D5W/SOD CHLO 0.9% 1,000 ML IV SCH ×2 (16:27→18:34)
[2021-03-26] MEDS: DOXYCYCLINE 100MG/250ML 250 ML IV SCH (16:28)
[2021-03-26] MEDS: fentaNYL Drip 2500mCg/250mlNS 250 ML IV SCH (22:22)
[2021-03-27] VITALS (96 sets, daily range): BP systolic 67–169; BP diastolic 53–108
[2021-03-27] MEDS: IPRATROPIUM BROM 0.5 MG/2.5ML INH SOL NEB SCH ×4 (00:09→18:15)
[2021-03-27] MEDS: ALBUTEROL SULF 2.5 MG/0.5ML(0.5%) NEB SOLN NEB SCH ×4 (00:09→18:14)
[2021-03-27] MEDS: methylPREDNISolone SOD SUCC 40 MG/ML VL IV SCH ×2 (02:54→09:49)
[2021-03-27 03:55] LABS: Basophils # (auto) 0 10 ^3/uL (0-0.2); Basophils % (auto) 0.1 % (0.0-2.0); Eosinophils # (auto) 0 10 ^3/uL (0-0.8); Hematocrit 31.2 % (36.0-46.0); Hemoglobin 10.5 g/dL (12.2-16.2); Lymphocytes # (auto) 0.7 10 ^3/uL (0.4-5.4); Lymphocytes % (auto) 10.2 % (10.0-50.0); Mean Corpuscular Hemoglobin 28.2 pg (28.0-32.0); Mean Corpuscular Hgb Conc. 33.6 g/dL (32.0-36.0); Mean Corpuscular Volume 83.8 fL (80.0-100.0); Monocytes # (auto) 0.4 10 ^3/uL (0-1.3); Monocytes % (auto) 5.9 % (0.0-12.0); Neutrophils # (auto) 6.1 10 ^3/uL (1.6-8.6); Neutrophils % (auto) 83.8 % (37.0-80.0); Nucleated Red Blood Cells % 0.1 %; Red Blood Cells 3.72 10^6/uL (4.0-5.20); Red Cell Distribution Width 15.9 % (11.8-14.3); White Blood Cell 7.2 10^3/uL (4.4-10.8)
[2021-03-27] MEDS: DOXYCYCLINE 100MG/250ML 250 ML IV SCH ×2 (04:00→15:49)
[2021-03-27 04:23] LABS: Calcium 8.1 mg/dL (8.5-10.1); Potassium 4.3 mmol/L (3.5-5.1)
[2021-03-27 04:25] LABS: BUN/Creatinine Ratio 42.2
[2021-03-27] MEDS: diphenhdrAMINE HCL 50 MG/1 ML VL IV SCH ×3 (05:09→21:57)
[2021-03-27] MEDS: CLINDAMYCIN 600MG IV 50 ML IV SCH ×3 (05:10→21:57)
[2021-03-27] MEDS: InsuLIN REG 1unit/0.01ml Soln (100units/ml) SC SCH ×4 (06:51→21:58)
[2021-03-27] MEDS: ACCU-CHEK COMFORT CURVE STRIP VI SCH ×4 (06:51→21:58)
[2021-03-27] MEDS: ENOXAPARIN SOD 40 MG/0.4 ML SYRINGE SC SCH (09:50)
[2021-03-27] MEDS: cefTRIAXone 1GM/50ML D5W 50 ML IV SCH (09:50)
[2021-03-27] MEDS: D5W/SOD CHLO 0.9% 1,000 ML IV SCH ×2 (09:51→13:02)
[2021-03-27] MEDS: METHADONE HCL 10 MG TAB PO SCH (10:11)
[2021-03-27] MEDS: NOREPINEPHRINE 8 MG/250ML KIT 250 ML IV SCH (11:09)
[2021-03-27] MEDS: MIDAZOLAM DRIP 50 mg/50mL 50 ML IV SCH (11:09)
[2021-03-27] MEDS: fentaNYL Drip 2500mCg/250mlNS 250 ML IV SCH (11:28)
[2021-03-28] VITALS (64 sets, daily range): BP systolic 89–152; BP diastolic 41–93
[2021-03-28] MEDS: IPRATROPIUM BROM 0.5 MG/2.5ML INH SOL NEB SCH ×4 (00:03→18:52)
[2021-03-28] MEDS: ALBUTEROL SULF 2.5 MG/0.5ML(0.5%) NEB SOLN NEB SCH ×4 (00:03→18:52)
[2021-03-28] MEDS: methylPREDNISolone SOD SUCC 40 MG/ML VL IV SCH ×2 (02:45→15:29)
[2021-03-28] MEDS: DOXYCYCLINE 100MG/250ML 250 ML IV SCH ×2 (04:00→17:06)
[2021-03-28] MEDS: CLINDAMYCIN 600MG IV 50 ML IV SCH ×3 (06:00→22:56)
[2021-03-28] MEDS: ACCU-CHEK COMFORT CURVE STRIP VI SCH ×4 (06:44→22:57)
[2021-03-28] MEDS: diphenhdrAMINE HCL 50 MG/1 ML VL IV SCH (06:44)
[2021-03-28] MEDS: InsuLIN REG 1unit/0.01ml Soln (100units/ml) SC SCH ×4 (06:45→22:58)
[2021-03-28] MEDS: cefTRIAXone 1GM/50ML D5W 50 ML IV SCH (09:32)
[2021-03-28] MEDS: ENOXAPARIN SOD 40 MG/0.4 ML SYRINGE SC SCH (09:32)
[2021-03-28] MEDS: METHADONE HCL 10 MG TAB PO SCH (09:32)
[2021-03-28] MEDS ORDERED: FUROSEMIDE 20 MG/2 ML VIAL IV ONE (14:30)
[2021-03-28] MEDS ORDERED: diphenhdrAMINE HCL 50 MG/1 ML VL IV PRN (14:30)
[2021-03-29] VITALS (21 sets, daily range): BP systolic 84–135; BP diastolic 20–79
[2021-03-29] MEDS: ALBUTEROL SULF 2.5 MG/0.5ML(0.5%) NEB SOLN NEB SCH ×5 (00:11→23:58)
[2021-03-29] MEDS: IPRATROPIUM BROM 0.5 MG/2.5ML INH SOL NEB SCH ×5 (00:11→23:58)
[2021-03-29] MEDS: methylPREDNISolone SOD SUCC 40 MG/ML VL IV SCH (02:45)
[2021-03-29] MEDS: HYDROmorphone HCL 2 MG/ML VL IV PRN ×2 (04:24→09:04)
[2021-03-29] MEDS: DOXYCYCLINE 100MG/250ML 250 ML IV SCH ×2 (04:25→16:01)
[2021-03-29 05:22] LABS: Hematocrit 38.9 % (36.0-46.0); Hemoglobin 12.7 g/dL (12.2-16.2); Mean Corpuscular Hemoglobin 27.1 pg (28.0-32.0); Mean Corpuscular Hgb Conc. 32.8 g/dL (32.0-36.0); Mean Corpuscular Volume 82.9 fL (80.0-100.0); Red Blood Cells 4.69 10^6/uL (4.0-5.20); Red Cell Distribution Width 15.8 % (11.8-14.3); White Blood Cell 11.8 10^3/uL (4.4-10.8)
[2021-03-29 05:24] LABS: Band Neutrophils % (manual) 0; Basophils % (manual) 0 (0.0-2.0); Blast Cells 0; Eosinophils % (manual) 0 (0-7); Metamyelocytes % 0; Myelocytes % 0; Promyelocytes % 0; Reactive Lymphocytes 0
[2021-03-29 05:30] LABS: BUN/Creatinine Ratio 34.8; Calcium 8.4 mg/dL (8.5-10.1); Potassium 4.6 mmol/L (3.5-5.1)
[2021-03-29 06:07] LABS: Lymphocytes % (manual) 17 (10.0-50.0); Monocytes % (manual) 7 (0-12)
[2021-03-29] MEDS: CLINDAMYCIN 600MG IV 50 ML IV SCH (06:25)
[2021-03-29] MEDS: InsuLIN REG 1unit/0.01ml Soln (100units/ml) SC SCH ×4 (06:44→21:26)
[2021-03-29] MEDS: ACCU-CHEK COMFORT CURVE STRIP VI SCH ×4 (06:44→21:27)
[2021-03-29] MEDS: cefTRIAXone 1GM/50ML D5W 50 ML IV SCH (09:04)
[2021-03-29] MEDS ORDERED: PANTOPRAZOLE 40 MG/10 ML VIAL INJ IV SCH (10:00)
[2021-03-29] MEDS: ACETAMINOPHEN 500 MG TAB PO PRN ×2 (10:43→17:57)
[2021-03-29] MEDS: ENOXAPARIN SOD 40 MG/0.4 ML SYRINGE SC SCH (10:44)
[2021-03-29] MEDS: METHADONE HCL 10 MG TAB PO SCH (10:44)
[2021-03-30] MEDS: DOXYCYCLINE 100MG/250ML 250 ML IV SCH ×2 (04:08→16:00)
[2021-03-30 05:00] VITALS: BP 125/80
[2021-03-30] MEDS: ACCU-CHEK COMFORT CURVE STRIP VI SCH ×3 (06:15→17:00)
[2021-03-30] MEDS: InsuLIN REG 1unit/0.01ml Soln (100units/ml) SC SCH ×3 (06:15→17:00)
[2021-03-30] MEDS: IPRATROPIUM BROM 0.5 MG/2.5ML INH SOL NEB SCH ×2 (06:42→11:51)
[2021-03-30] MEDS: ALBUTEROL SULF 2.5 MG/0.5ML(0.5%) NEB SOLN NEB SCH ×2 (06:42→11:51)
[2021-03-30 09:00] VITALS: BP 143/74
[2021-03-30] MEDS: cefTRIAXone 1GM/50ML D5W 50 ML IV SCH (09:55)
[2021-03-30] MEDS: ACETAMINOPHEN 500 MG TAB PO PRN (09:55)
[2021-03-30] MEDS: ENOXAPARIN SOD 40 MG/0.4 ML SYRINGE SC SCH (09:55)
[2021-03-30] MEDS ORDERED: METHADONE HCL 10 MG TAB PO SCH (10:00)
[2021-03-30] MEDS ORDERED: FAMOTIDINE 20 MG TAB PO SCH (10:00)
[2021-03-30 13:00] VITALS: BP 131/81
[2021-03-30 14:11] VITALS: BP 143/74
== END 2021-03-30 16:55 | disposition home health service (06) | DRG 130 ==
LOC: ER 11:16 → EDBD 11:16 → EDUNIT# 11:16 → TELE 13:57 → ICU WEST 19:40 → TELE-WESTW 03-29 17:53
PROVIDERS: ADMIT Internal Medicine; ATTEND Internal Medicine
PROC: 05HC33Z Insertion of Infusion Device into Left Basilic Vein, Percutaneous Approach (ICD-10-PCS; principal; 2021-03-24)
PROC: 5A1955Z Respiratory Ventilation, Greater than 96 Consecutive Hours (ICD-10-PCS; 2021-03-24)
PROC: 0BH17EZ Insertion of Endotracheal Airway into Trachea, Via Natural or Artificial Opening (ICD-10-PCS; 2021-03-24)
PROC: B54NZZA Ultrasonography of Left Upper Extremity Veins, Guidance (ICD-10-PCS; 2021-03-24)
DX: J96.21 Acute and chronic respiratory failure with hypoxia (principal); J69.0 Pneumonitis due to inhalation of food and vomit; Z99.81 Dependence on supplemental oxygen; L03.116 Cellulitis of left lower limb; F11.20 Opioid dependence, uncomplicated; T88.6XXA Anaphylactic reaction due to adverse effect of correct drug or medicament properly administered, initial encounter; Z99.11 Dependence on respirator [ventilator] status; L03.114 Cellulitis of left upper limb; E11.9 Type 2 diabetes mellitus without complications; J44.0 Chronic obstructive pulmonary disease with (acute) lower respiratory infection; B19.20 Unspecified viral hepatitis C without hepatic coma; J10.01 Influenza due to other identified influenza virus with the same other identified influenza virus pneumonia; E66.9 Obesity, unspecified; E78.5 Hyperlipidemia, unspecified; F32.9 Major depressive disorder, single episode, unspecified; K21.9 Gastro-esophageal reflux disease without esophagitis; J98.11 Atelectasis; I10 Essential (primary) hypertension; Z68.28 Body mass index [BMI] 28.0-28.9, adult; T50.8X5A Adverse effect of diagnostic agents, initial encounter; F17.210 Nicotine dependence, cigarettes, uncomplicated; Z80.9 Family history of malignant neoplasm, unspecified; Z82.49 Family history of ischemic heart disease and other diseases of the circulatory system; Z83.3 Family history of diabetes mellitus; Z90.710 Acquired absence of both cervix and uterus; Z88.6 Allergy status to analgesic agent; Z88.5 Allergy status to narcotic agent; Z91.013 Allergy to seafood; Z20.822 Contact with and (suspected) exposure to COVID-19; J44.1 Chronic obstructive pulmonary disease with (acute) exacerbation; F12.10 Cannabis abuse, uncomplicated; M19.09 Primary osteoarthritis, other specified site
CPT/HCPCS: 36415; 36600; 71045; 73201; 73701; 80048; 80053; 80061; 81001; 82805; 82962; 83036; 83605; 83735; 83880; 84484; 85007; 85025; 85027; 85652; 87040; 87070; 87077; 87081; 87205; 87426; 93005; 93970; 93971; 94002; 94003; 94640; 96365; 96367; 96375; C9113; G0378; J0696; J1815; J1956; J2250; J3490; J7042